=== PATIENT | female | born 1960 | race Caucasian/White ===

== ENCOUNTER 2024-12-22 11:14 | Inpatient (IN) ==
--- NOTE | 2024-12-22 11:25 | Emergency Department Note ---
Impression & Plan Neutropenic fever, Pancytopenia, Epistaxis, Hypomagnesemia, History of endometrial cancer ED Provider Note NAME: CLAUDE HENDERSON AGE: 64 SEX: F : 1960 ARRIVES VIA: Walk-In INFORMANT: Patient, ED PROVIDER(S): Amadou Woodruff MD CHIEF COMPLAINT: Outpatient referral, fever chest x-ray does not show obvious pneumonia MEDICAL DECISION MAKING: Patient presents due to concern for possible neutropenia and fever. IV was established and blood work obtained along with blood cultures and MRSA swab and empiric IV cefepime IV fluids. Patient with a white count of 0.5 and absolute neutrophil count of 280. The patient does have significant thrombocytopenia with a platelet count of 5. Kidney function unremarkable hypomagnesemia noted and associated transaminitis with mild elevation in Pro-Jalil. Bio fire and MRSA swab negative. The patient did have a blood bank ordered and platelets also ordered after discussing with Dr. Alves who recommended transfusion to platelet count greater than 10. I did speak the on-call hospitalist service [facility] and the patient was admitted by Dr. Jackman. Critical Care: I have personally spent 48 minutes of critical care time in direct management of this patient. This includes bedside care, interpretation of diagnostic studies, and testing, discussion with consultants, patient, and family members, and other require inpatient management activities. This 48 minutes is in excess of all separately billable procedures. Discussion w/ other healthcare providers: Dr. Alves [facility] oncology hematology [facility] and Dr. Jackman inpatient medicine service Prior /Outside records reviewed: I reviewed the patient's outpatient blood work from earlier today which showed an absolute neutrophil count of 220. White count was 0.7. Differential diagnosis: Viral syndrome, otitis, pharyngitis, pneumonia, influenza, meningitis, urinary tract infection, sepsis, bacteremia, as well as other pathologies. Diagnostics, as interpreted by me: ECG: Normal sinus rhythm, rate of 91, normal intervals, normal axis no ST elevations T wave version in V2. Cardiac monitoring: An order was placed for continuous cardiac monitoring. The monitor shows a rate of 88 with sinus rhythm. Patient was placed on pulse oximetry Medical decision rules: None Imaging studies: I informally interpreted the patient's chest x-ray shows trace right-sided pleural effusion, port noted no obvious pneumothorax with formal report to follow. HPI: Patient presents due to concern for fever. The patient reportedly was seen in the outpatient setting by oncology to discuss further chemotherapy treatment for this upcoming Wednesday. The patient reportedly did undergo 5 days of chemotherapy which she completed December 08 for endometrial cancer. She does follow with Dr. Alves. Denies any chest pain or shortness of breath but was noted to have a fever of 102 in the clinic. Patient denies any sinus congestion or cough. The patient does have a colostomy. She denies any dysuria or hematuria. The patient reports that she has had some right sided bloody nose. No trauma. Patient does report that she has been very fatigued all over since her chemo but her appetite has improved the last several days. No vomiting or diarrhea. No known sick contacts or any recent travel. PAST MEDICAL HISTORY: Endometrial cancer PAST SURGICAL HISTORY: Colostomy SOCIAL HISTORY: Denies tobacco use. HOME MEDICATIONS: See Below ALLERGIES: See Below VITALS: See Below PHYSICAL EXAMINATION: GENERAL: Fatigable but in NAD, non-toxic. EYE EXAM: Normal conjunctiva. PERRL, no anisocoria and EOM's grossly intact w/o pain. OROPHARYNX: Dry mucus membranes, grossly normal dentition. Nose: Blood noted in the right naris. No bleeding noted from the left naris. NECK: Trachea midline, no stridor. LUNGS: Clear to auscultation. Normal chest wall mechanics. HEART: NSR, no MRG. ABDOMEN: Abdomen soft, non-tender, colostomy noted, no masses, no rebound or guarding. BACK: No CVA TTP. SKIN: No rashes and no bruising. UPPER EXTREMITIES: Upper extremities are grossly normal. LOWER EXTREMITIES: Grossly normal, no edema. NEURO EXAM: Awake and alert, follows commands, no obvious facial asymmetry, normal speech, moves all 4 extremities. 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 Beliefs That Will Affect Care: None Current Living Situation: Alone Other Information That Helps Us Care for You: No Feels Safe at Home: Yes Safety Concerns: Feels Safe At This Time Allergies Allergies Allergy/AdvReac Type Severity Reaction Status Date / Time No Known Allergies Allergy Verified 04/01/24 02:37 Home Meds Home Medications Medication Instructions Recorded Confirmed olanzapine 10 mg tablet 10 mg PO DIRECTED PRN Other 12/22/24 12/22/24 ondansetron HCl 8 mg tablet 8 mg PO DIRECTED PRN n/v 12/22/24 12/22/24 Results & Data (ED) Vital Signs Vital Signs - 24 hr 12/22/24 11:17 12/22/24 11:40 12/22/24 11:40 Temperature 37.5 C Temperature Source Oral Pulse Rate 91 H 97 H Pulse Rate [Finger] 97 H Pulse Rate from SpO2 Sensor Pulse Rhythm Regular Pulse Rhythm [Finger] Regular Pulse Strength Pulse Strength [Finger] Normal Respiratory Rate 14 18 16 Respiratory Effort / Characteristics Non-Labored Respiratory Depth Normal Normal Respiratory Pattern Regular Blood Pressure 118/75 Blood Pressure [Left Arm] 146/86 H Blood Pressure Mean 89 Blood Pressure Mean [Left Arm] 106 Pulse Oximetry 96 97 95 Oxygen Delivery Method Room Air Room Air Room Air Oxygen Flow Rate 0 Sepsis Recent Fever Within 48 Hours Yes Sepsis New/Unexplained Change in Mental Status No Sepsis Action Taken by Nursing No Action Required 12/22/24 12:17 12/22/24 12:18 12/22/24 12:30 Temperature Temperature Source Pulse Rate 98 H 94 H 96 H Pulse Rate [Finger] Pulse Rate from SpO2 Sensor 95 H 96 H Pulse Rhythm Pulse Rhythm [Finger] Pulse Strength Pulse Strength [Finger] Respiratory Rate 25 H 20 Respiratory Effort / Characteristics Respiratory Depth Respiratory Pattern Blood Pressure 146/86 H 147/79 H Blood Pressure [Left Arm] Blood Pressure Mean 106 88 Blood Pressure Mean [Left Arm] Pulse Oximetry 95 97 Oxygen Delivery Method Oxygen Flow Rate Sepsis Recent Fever Within 48 Hours Sepsis New/Unexplained Change in Mental Status Sepsis Action Taken by Nursing 12/22/24 13:00 12/22/24 13:45 12/22/24 13:45 Temperature 37.3 C Temperature Source Oral Pulse Rate 92 H 82 82 Pulse Rate [Finger] Pulse Rate from SpO2 Sensor 92 H 83 Pulse Rhythm Regular Pulse Rhythm [Finger] Pulse Strength Normal Pulse Strength [Finger] Respiratory Rate 20 18 20 Respiratory Effort / Characteristics Respiratory Depth Respiratory Pattern Blood Pressure 131/78 129/72 129/72 Blood Pressure [Left Arm] Blood Pressure Mean 97 91 91 Blood Pressure Mean [Left Arm] Pulse Oximetry 97 95 95 Oxygen Delivery Method Oxygen Flow Rate Sepsis Recent Fever Within 48 Hours Sepsis New/Unexplained Change in Mental Status Sepsis Action Taken by Nursing 12/22/24 14:00 12/22/24 14:00 12/22/24 14:15 Temperature 36.9 C Temperature Source Oral Pulse Rate 81 78 77 Pulse Rate [Finger] Pulse Rate from SpO2 Sensor 77 Pulse Rhythm Pulse Rhythm [Finger] Pulse Strength Pulse Strength [Finger] Respiratory Rate 22 18 20 Respiratory Effort / Characteristics Respiratory Depth Respiratory Pattern Blood Pressure 129/76 129/76 122/77 Blood Pressure [Left Arm] Blood Pressure Mean 93 88 92 Blood Pressure Mean [Left Arm] Pulse Oximetry 96 96 96 Oxygen Delivery Method Oxygen Flow Rate Sepsis Recent Fever Within 48 Hours Sepsis New/Unexplained Change in Mental Status Sepsis Action Taken by Nursing 12/22/24 14:21 Temperature Temperature Source Pulse Rate 77 Pulse Rate [Finger] Pulse Rate from SpO2 Sensor 77 Pulse Rhythm Pulse Rhythm [Finger] Pulse Strength Pulse Strength [Finger] Respiratory Rate 18 Respiratory Effort / Characteristics Respiratory Depth Respiratory Pattern Blood Pressure 122/77 Blood Pressure [Left Arm] Blood Pressure Mean 92 Blood Pressure Mean [Left Arm] Pulse Oximetry 95 Oxygen Delivery Method Oxygen Flow Rate Sepsis Recent Fever Within 48 Hours Sepsis New/Unexplained Change in Mental Status Sepsis Action Taken by Jail Medications Current Medication List: was personally reviewed by me Laboratory Data Attestation: I reviewed the patient's lab results. 12/23/24 06:28 12/22/24 11:50 Lab Results 12/22/24 12/22/24 12/22/24 Range/Units 11:50 11:59 12:15 WBC 0.50 L* (4.8-10.8) K/ul RBC 2.74 L (4.20-5.40) M/uL Hgb 8.6 L (12.0-16.0) g/dl Hct 24.9 L (37.0-47.0) % MCV 90.9 (80.0-100.0) fL MCH 31.4 (25.0-34.0) pg MCHC 34.5 (32.0-36.0) g/dL RDW Std Deviation 41.8 (36.4-46.3) fL RDW Coeff of Paul 12.6 (11.5-14.5) % Plt Count 5 L* (130-400) K/uL MPV 12.8 H (9.4-12.4) fL Immature Gran % (Auto) 2.0 % Neut % (Auto) 30.0 % Lymph % (Auto) 56.0 % [place] % (Auto) 12.0 % Eos % (Auto) 0.0 % Baso % (Auto) 0.0 % Neut # (Auto) 0.15 L* (1.40-6.50) K/uL Lymph # (Auto) 0.28 L (1.20-3.40) K/uL [place] # (Auto) 0.06 L (0.11-0.59) K/uL Eos # (Auto) 0.00 (0.00-0.50) K/uL Baso # (Auto) 0.00 (0.00-0.20) K/uL Immature Gran # (Auto) 0.01 (0.01-0.20) K/uL Platelet Estimate Signific. Decreased L (Normal) Sodium 135 L (136-145) mmol/L Potassium 3.6 (3.5-5.1) mmol/L Chloride 97 L (98-107) mmol/L Carbon Dioxide 28 (21-32) mmol/L Anion Gap 10 (3-11) BUN 31 H (6-23) mg/dl Creatinine 0.95 (0.6-1.2) mg/dl Est Cr Clr Drug Dosing 56.1 ml/min eGFR 67.32 BUN/Creatinine Ratio 32.6 H (10-20) Glucose 130 H (70-99(Fasting)) mg/dl Lactate 1.0 (0.4-2.0) mmol/L Calcium 8.7 (8.6-10.3) mg/dl Magnesium 1.2 L (1.7-2.4) mg/dl Total Bilirubin 0.3 (0.2-1.0) mg/dl Direct Bilirubin 0.1 (0-0.2) mg/dl AST 66 H (13-39) U/L ALT 65 H (7-52) U/L Alkaline Phosphatase 104 (34-104) U/L Troponin I High Sens 8.8 (0-14) pg/ml Total Protein 6.8 (6.0-8.3) gm/dl Albumin 3.2 L (3.4-5.0) gm/dl Procalcitonin 0.80 H (0-0.5) ng/ml Nasal Screen MRSA (PCR) Negative (Negative) Adenovirus (PCR) Not Detected (NotDetected) B. pertussis DNA (PCR) Not Detected (NotDetected) B.parapertussis DNA PCR Not Detected (NotDetected) C. pneumoniae DNA (PCR) Not Detected (NotDetected) Coronavirus OC43 (PCR) Not Detected (NotDetected) Coronavirus HKU1 (PCR) Not Detected (NotDetected) Coronavirus 229E (PCR) Not Detected (NotDetected) SARS-CoV-2 (PCR) Not Detected (NotDetected) Coronavirus NL63 (PCR) Not Detected (NotDetected) Human Metapneumovir PCR Not Detected (NotDetected) Influenza Type A (PCR) Not Detected (NotDetected) Influenza Type B (PCR) Not Detected (NotDetected) M. pneumoniae (PCR) Not Detected (NotDetected) Parainfluenza 1 (PCR) Not Detected (NotDetected) Parainfluenza 2 (PCR) Not Detected (NotDetected) Parainfluenza 3 (PCR) Not Detected (NotDetected) Parainfluenza 4 (PCR) Not Detected (NotDetected) RSV (PCR) Not Detected (NotDetected) Entero/Rhino (PCR) Not Detected (NotDetected) Blood Type O Positive Antibody Screen NEGATIVE Administered Medications Acetaminophen (Acetaminophen 325 Mg Tab) 650 mg PO Q4H PRN PRN Reason: Pain or Fever Stop: 01/21/25 17:35 Last Admin: 12/22/24 20:49 Dose: 650 mg Documented By: CATY Filgrastim (Filgrastim 300 Mcg/Ml Vial) 300 mcg SQ DAILY JEFFERSON Stop: 12/24/24 09:01 Last Admin: 12/22/24 18:30 Dose: 300 mcg Documented By: KBB Cefepime HCl (Maxipime 2000mg) 2,000 mg in 20 mls @ 5 mls/min IV Q12H JEFFERSON; Protocol Stop: 12/24/24 19:59 Last Admin: 12/22/24 20:49 Dose: 5 mls/min Documented By: CATY Lactated Ringer's (Lr) 1,000 mls @ 75 mls/hr IV .[id number] JEFFERSON Stop: 12/25/24 17:35 Last Admin: 12/22/24 18:29 Dose: 75 mls/hr Documented By: LYN Discontinued Medications Acetaminophen (Acetaminophen 500 Mg Tab) 1,000 mg PO NOW STA Stop: 12/22/24 11:41 Last Admin: 12/22/24 12:12 Dose: 1,000 mg Documented By: RONN Sodium Chloride (Nss) 1,000 mls @ 999 mls/hr IV .[id number] JEFFERSON Stop: 12/22/24 12:45 Last Infusion: 12/22/24 13:14 Dose: Infused Documented By: Admin: 12/22/24 12:13 Dose: 999 mls/hr Documented By: RONN Cefepime HCl (Maxipime 2000mg) 2,000 mg in 20 mls @ 5 mls/min IV NOW STA; Protocol Stop: 12/22/24 11:43 Last Admin: 12/22/24 12:11 Dose: 5 mls/min Documented By: RONN Magnesium Sulfate/Dextrose (Magnesium Sulfate / D5w) 1 gm in 100 mls @ 50 mls/hr IV Q2H JEFFERSON Stop: 12/23/24 01:35 Last Infusion: 12/23/24 05:18 Dose: Infused Documented By: Admin: 12/23/24 03:18 Dose: 50 mls/hr Documented By: Infusion: 12/23/24 03:17 Dose: Infused Documented By: Admin: 12/23/24 01:17 Dose: 50 mls/hr Documented By: Infusion: 12/23/24 01:17 Dose: Infused Documented By: Admin: 12/22/24 23:42 Dose: 50 mls/hr Documented By: [id number] Infusion: 12/22/24 23:00 Dose: Infused Documented By: Admin: 12/22/24 18:29 Dose: 50 mls/hr Documented By: LYN Oxymetazoline HCl (Oxymetazoline 0.05% 30 Ml Btl) 1 sprays NA NOW ONE Stop: 12/22/24 11:50 Last Admin: 12/22/24 12:12 Dose: 1 sprays Documented By: RONN Imaging Data Radiologist's Impression: Chest X-Ray 12/22/24 11:40 XR chest 1V portable CLINICAL HISTORY: Sepsis COMPARISON STUDY: 03/31/2024 FINDINGS: Interval right chest port tip is at the cavoatrial junction. Heart size and pulmonary vasculature are normal. No effusion, consolidation, or pneumothorax. IMPRESSION: No acute findings. ACT 112: Negative or not required by law. Electronically signed by: Noah Dong M.D. 12/22/2024 12:19 PM Discharge Plan Visit Data Chief Complaint: Referred by Doctor Stated Complaint: LOW WHITE AND RED BLOOD COUNT ED Provider: Amadou Woodruff Discharge Problem: Neutropenic fever, Pancytopenia, Epistaxis, Hypomagnesemia, History of endometrial cancer Patient Disposition: Admitted As Inpatient Condition: Fair Discharge Instructions Interventions: ED Discharge Assessment Last Done: 12/22/24 17:12
[2024-12-22] MEDS: CEFEPIME 2000MG 2,000 MG/20 ML SYR IV STA (12:11)
[2024-12-22] MEDS: OXYMETAZOLINE 0.05% 30 ML BTL ONE (12:12)
[2024-12-22] MEDS: ACETAMINOPHEN 500 MG TAB PO STA (12:12)
[2024-12-22] MEDS: SODIUM CHLORIDE 0.9% 1,000 ML IV SCH (12:13)
--- NOTE | 2024-12-22 12:20 | XRay Report ---
XR chest 1V portable CLINICAL HISTORY: Sepsis COMPARISON STUDY: 03/31/2024 FINDINGS: Interval right chest port tip is at the cavoatrial junction. Heart size and pulmonary vascu lature are normal. No effusion, consolidation, or pneumothorax. IMPRESSION: No acute findings. ACT 112: Negative or not required by law. Electronically signed by: Noah Dong M.D. 12/22/2024 12:19 PM
[2024-12-22 12:33] LABS: Albumin Level 3.2 gm/dl (3.4-5.0); BUN Creatinine Ratio 32.6 (10-20); Bilirubin Direct 0.1 mg/dl (0-0.2); Bilirubin,Total 0.3 mg/dl (0.2-1.0); Calcium 8.7 mg/dl (8.6-10.3); Creatinine Clr Calc Pharmacy 56.1 ml/min; Magnesium 1.2 mg/dl (1.7-2.4); Potassium 3.6 mmol/L (3.5-5.1); Total Protein 6.8 gm/dl (6.0-8.3)
[2024-12-22 12:38] LABS: Troponin I High Sensitivity 8.8 pg/ml (0-14)
[2024-12-22 12:43] LABS: Hematocrit (blood only) 24.9 % (37.0-47.0); Hemoglobin 8.6 g/dl (12.0-16.0); Mean Corpuscular Hemoglobin 31.4 pg (25.0-34.0); Mean Corpuscular Hgb Conc 34.5 g/dL (32.0-36.0); Mean Corpuscular Volume 90.9 fL (80.0-100.0); Mean Platelet Volume 12.8 fL (9.4-12.4); Platelet Count 5 K/uL (130-400); RDW Coefficient of Variation 12.6 % (11.5-14.5); RDW Standard Deviation 41.8 fL (36.4-46.3); Red Blood Count 2.74 M/uL (4.20-5.40)
[2024-12-22 12:45] LABS: Immature Granulocytes # (auto) 0.01 K/uL (0.01-0.20); Lymphocytes # (auto) 0.28 K/uL (1.20-3.40); Monocytes # (auto) 0.06 K/uL (0.11-0.59); Neutrophils # (auto) 0.15 K/uL (1.40-6.50); Platelet Estimate Signific. Decreased (Normal)
[2024-12-22] MEDS ORDERED: SODIUM CHLORIDE 0.9% 100 ML IV PRN ×2 (13:14→17:36)
[2024-12-22 13:35] LABS: Adenovirus PCR Not Detected (NotDetected); Bordetella parapertussis PCR Not Detected (NotDetected); Bordetella pertussis PCR Not Detected (NotDetected); Chlamydia pneumoniae PCR Not Detected (NotDetected); Coronavirus 229E PCR Not Detected (NotDetected); Coronavirus CoV-2 (COVID19)PCR Not Detected (NotDetected); Coronavirus HKU1 PCR Not Detected (NotDetected); Coronavirus NL63 PCR Not Detected (NotDetected); Coronavirus OC43PCR Not Detected (NotDetected); Human Metapneumovirus PCR Not Detected (NotDetected); Influenza A PCR Not Detected (NotDetected); Influenza B PCR Not Detected (NotDetected); Mycoplasma pneumoniae PCR Not Detected (NotDetected); Parainfluenza Virus 1 PCR Not Detected (NotDetected); Parainfluenza Virus 2 PCR Not Detected (NotDetected); Parainfluenza Virus 3 PCR Not Detected (NotDetected); Parainfluenza Virus 4 PCR Not Detected (NotDetected); Respiratory Syncytial VirusPCR Not Detected (NotDetected); Rhinovirus/Enterovirus PCR Not Detected (NotDetected)
--- NOTE | 2024-12-22 13:52 | Electrocardiogram Report ---
Test Reason : Blood Pressure : */* mmHG Vent. Rate : 91 BPM Atrial Rate : 91 BPM P-R Int : 156 ms QRS Dur : 84 ms QT Int : 322 ms P-R-T Axes : 44 40 48 degrees QTcB Int : 396 ms Normal sinus rhythm Nonspecific T wave abnormality Abnormal ECG When compared with ECG of 31-Mar-2024 22:27, Minimal criteria for Anterior infarct are no longer Present Minimal criteria for Inferior infarct are no longer Present Nonspecific T wave abnormality, improved in Anterior leads Nonspecific T wave abnormality, worse in Lateral leads Confirmed by Robert Egan ([id number]) on 12/22/2024 1:52:02 PM Referred By: Greer Lai Confirmed By: Robert Egan
--- NOTE | 2024-12-22 15:07 | History & Physical Report ---
Date of Service December 22, 2024 Assessment & Plan (1) Pancytopenia: Plan: Patient is a 64 year old female with past medical history significant for endometrial/ovarian cancer, hysterectomy, colostomy, malnutrition, who presents with fever and nose bleed x1 day that started this morning. She went to her routine followup appointment with Dr. Alves for anticipated chemo treatment scheduled for this coming Wednesday, but was found to have . Completed initial cycle of Cisplatin/Etoposide on 12/08. Had URI symptoms last week without fever or cough, self-limited and now resolved. Reports having weakness, fatigue, no appetite since last chemo treatment. Denies chest pain, swelling, breathing difficulty, urinary symptoms, N/V/D, rectal/urinary bleeding, injuries, falls, cognitive changes. Pancytopenia in the setting of febrile illness with unknown etiology: * Empiric Cefepime 2gm Q8H * Blood cultures pending; MRSA/Biofire neg * Clinically dry- IV fluid replacement with LR at 75ml/hr ordered * Trend CBC with AM * Ordered urine culture to be collected # Chemo-induced Neutropenia * Neupogen x 3 days and consider additional treatment pending labs * Neutropenic precautions #Thrombocytopenia s/p chemo treatment Endometrial CA with cisplatin/etopaside: * Given 1 unit platelets in ED; additional 1 unit ordered to follow * Recheck with AM labs #Epistaxis: * Given Afrin in the ED with resolution * Will continue to monitor #Hypomagnesemia: * Mag 1.2 in the ED * Ordered 1 gm replacement x 4 doses * AM labs ordered DVT Ppx: Teds Code status: Full PCP: Dr. Greer Lai Dispo: Admit to Med Surg for further mgmt Patient seen in collaboration with Dr. Jackman. Please see addendum.I spent a total of 70 minutes coordinating, documenting and providing care for this patient excluding time spent in the performance of separately billed services or time spent by another provider/QHP. (2) Neutropenia: (3) Thrombocytopenia: (4) Epistaxis: (5) Hypomagnesemia: (6) Ovarian cancer: (7) Endometrial cancer: History of Present Illness Primary Care Provider: Greer Lai DO Patient is a 64 year old female with past medical history significant for endometrial/ovarian cancer, hysterectomy, colostomy, malnutrition, who presents with fever and nose bleed x1 day that started this morning. She went to her routine followup appointment with Dr. Alves for anticipated chemo treatment scheduled for this coming Wednesday, but was found to have . Completed initial cycle of Cisplatin/Etoposide on 12/08. Had URI symptoms last week without fever or cough, self-limited and now resolved. Reports having weakness, fatigue, no appetite since last chemo treatment. Denies chest pain, swelling, breathing difficulty, urinary symptoms, N/V/D, rectal/urinary bleeding, injuries, falls, cognitive changes. In the emergency room, she had a fever of 37.5 with evidence of pancytopenia WBC 0.5, Neut 0.15, Lymph 0.28, Dare 0.06, platelets low at 5. No evidence of sepsis, although Procal elevated at 0.8. Hemodynamically stable. Cefepime was initiated. 1 unit Platelets given. Chest Xray showed no acute findings. EKG showing NSR, QTc 396. MRSA/Biofire negative. Blood cultures. Clinically dry and given IV fluids. Per external chart review, the patient was found to have a cystic mass measuring 23 x 15 x 28 cm in the abdomen, arising from the pelvis and extending to the abdomen with bilateral hydronephrosis and hydroureter on 03/2024 On 04/2024 she underwent exploratory laparotomy, total abdominal hysterectomy with bilateral salpingo-oophorectomy, sigmoid-rectum resection with descending colon end-ostomy (per general surgery), cystourethroscopy. 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 There was involvement of the fallopian tube as well. She completed 6 cycles of Taxol plus carboplatin in Avastin combination then placed on maintenance Avastin for a few weeks. She then went to [facility] for a second opinion and was given the recommendation to begin Cisplatin and Etoposide- her first treatment ended on 12/08. Discussed patient condition with Susi Soto Heme/Onc, via [place] text regarding Neupogen management in the setting of pancytopenia. Labs reviewed and per Kaiden Soto advised for up to 5 days treatment pending labs. History obtained from the patient, her sister who was at the bedside and via external chart review. Allergies Allergy/AdvReac Type Severity Reaction Status Date / Time No Known Allergies Allergy Verified 09/28/24 02:37 Home Medications Medication Instructions Recorded Confirmed Type olanzapine 10 mg tablet 10 mg PO DIRECTED PRN Other 12/22/24 12/22/24 History ondansetron HCl 8 mg tablet 8 mg PO DIRECTED PRN n/v 12/22/24 12/22/24 History Past Med/Surg History Problem List Epistaxis Pancytopenia Thrombocytopenia Hypomagnesemia Neutropenia Colostomy status Medical History Breast nodule Malnutrition Endometrial cancer Ovarian cancer Social History Smoking Status: Never smoker Second Hand Exposure: No; Do You Dip or Chew Tobacco: No; Tobacco Cessation Education Requested by Patient: No Hx Alcohol Use: No Hx Substance Use: No Preferred Language: Romanian 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 WEIGHT/BMI reviewed. GEN: Appears weal, well-developed, NAD. PSYCH: AOx4. Normal memory, mood, and affect. HEENT -Head: NC/AT; -Eyes: PERRL, EOMI. No discharge or redn ess; -Ears: External ears are normal. -Nose: Right nare clot, no active bleedi ng. Left nare patent without drainage. -Mouth and throat: MMM. Normal gums, muc jeffery, palate,. Good dentition. NECK: Supple, with no masses. CV: S1, S2 without murmurs, rubs, extra sounds. No swelling. Pulses strong. LUNGS: CTAB, no w/r/c. ABD: Soft, NT/ND, colostomy intact with +air. : N/A SKIN: Warm, diaphoretic. Petechiae to left chest. MSK: No deformities, Normal gait. EXT: No clubbing, cyanosis, or edema. NEURO: Ambulating with no limitations. Normal muscle strength and tone. No focal deficits. Results & Data Results & Data Vital Signs (Past 12 Hours) Vital Signs Temp Pulse Pulse Resp BP BP Pulse Ox 12/22/24 14:15 77 20 122/77 96 12/22/24 14:00 36.9 C 81 22 129/76 96 12/22/24 13:45 37.3 C 82 18 129/72 95 12/22/24 12:18 94 H 25 H 146/86 H 95 12/22/24 12:17 98 H 12/22/24 11:40 97 H 16 95 12/22/24 11:40 97 H 18 146/86 H 97 12/22/24 11:17 37.5 C 91 H 14 118/75 96 O2 Del Method O2 Flow Rate 12/22/24 14:15 12/22/24 14:00 12/22/24 13:45 12/22/24 12:18 12/22/24 12:17 12/22/24 11:40 Room Air 0 12/22/24 11:40 Room Air 12/22/24 11:17 Room Air Laboratory Results Short CBC 12/22/24 Range/Units 11:50 WBC 0.50 L* (4.8-10.8) K/ul Hgb 8.6 L (12.0-16.0) g/dl Hct 24.9 L (37.0-47.0) % Plt Count 5 L* (130-400) K/uL BMP 12/22/24 11:50 Sodium 135 L Potassium 3.6 Chloride 97 L Carbon Dioxide 28 BUN 31 H Creatinine 0.95 Glucose 130 H Calcium 8.7 Liver Function 12/22/24 Range/Units 11:50 Total Bilirubin 0.3 (0.2-1.0) mg/dl Direct Bilirubin 0.1 (0-0.2) mg/dl AST 66 H (13-39) U/L ALT 65 H (7-52) U/L Alkaline Phosphatase 104 (34-104) U/L Albumin 3.2 L (3.4-5.0) gm/dl Diagnostic Findings Chest X-Ray 12/22/24 11:40 XR chest 1V portable CLINICAL HISTORY: Sepsis COMPARISON STUDY: 03/31/2024 FINDINGS: Interval right chest port tip is at the cavoatrial junction. Heart size and pulmonary vasculature are normal. No effusion, consolidation, or pneumothorax. IMPRESSION: No acute findings. ACT 112: Negative or not required by law. Electronically signed by: Noah Dong M.D. 12/22/2024 12:19 PM Code Status & VTE Plan VTE Prophylaxis Plan VTE Prophylaxis will be ordered: Yes Supervising Physician Co-Signing Physician Notes Patient seen and examined independently. Discussed with above provider. Patient is a 64-year-old female with medical history of ovarian cancer status post GEO with BSO, she had undergone cytoreductive surgery on 04/07/2024, currently on cisplatin and etoposide; last cycle 12/04 to 12/07. She had gone to hematology clinic and was found to have pancytopenia and was referred to the hospital. Continue cefepime till counts recover Discussed with hematology; plan to start Neupogen daily until neutrophil counts recover. Patient also given 1 unit of platelet transfusion so far; plan to transfuse another unit. Replete magnesium. Monitor CBC daily. I have reviewed the advanced practitioner's documentation, and I agree with, and take responsibility for the plan of care I spent a total of 30 minutes coordinating, documenting, and providing care for this patient excluding time spent in the performance of separately billed services. All of the aforementioned completed while collaborating with the assigned advanced practitioner for a full treatment plan
[2024-12-22] MEDS ORDERED: ondansetron HCL 8 MG in DEXTROSE 5% 50 ML IV PRN (17:36)
[2024-12-22] MEDS: MAGNESIUM SULFATE / D5W 1 GM/100 ML BAG IV SCH (18:29)
[2024-12-22] MEDS: LACTATED RINGER'S 1,000 ML IV SCH (18:29)
[2024-12-22] MEDS: FILGRASTIM 300 MCG/ML VIAL SQ SCH (18:30)
[2024-12-22] MEDS: ACETAMINOPHEN 325 MG TAB PO PRN (20:49)
[2024-12-22] MEDS: CEFEPIME 2000MG 2,000 MG/20 ML SYR IV SCH (20:49)
[2024-12-23 07:26] LABS: Hematocrit (blood only) 21.4 % (37.0-47.0); Hemoglobin 7.5 g/dl (12.0-16.0); Mean Corpuscular Hemoglobin 31.8 pg (25.0-34.0); Mean Corpuscular Volume 90.7 fL (80.0-100.0); Mean Platelet Volume 11.1 fL (9.4-12.4); Platelet Count 11 K/uL (130-400); RDW Coefficient of Variation 12.6 % (11.5-14.5); RDW Standard Deviation 41.8 fL (36.4-46.3); Red Blood Count 2.36 M/uL (4.20-5.40); White Blood Count 0.79 K/ul (4.8-10.8)
[2024-12-23 07:41] LABS: BUN Creatinine Ratio 27.8 (10-20); Calcium 8.2 mg/dl (8.6-10.3); Creatinine Clr Calc Pharmacy 74.8 ml/min; Magnesium 2.3 mg/dl (1.7-2.4); Phosphorus 2.8 mg/dl (2.5-4.9)
[2024-12-23 08:37] LABS: ANC (manual) 0.33 K/uL (1.4-6.5); Blast # (manual) 0.01 K/uL (0-0); Blast Cells % (manual) 1 %; Dohle Bodies 2+; Lymphocytes % (manual) 50 %; Monocytes # (manual) 0.06 K/uL (0.11-0.59); Monocytes % (manual) 7 %; Neutrophils # (manual) 0.33 K/uL (1.40-6.50); Neutrophils % (manual) 42 %; Toxic Granulation 2+
[2024-12-23] MEDS: POTASSIUM CHLORIDE / WTR 10 MEQ/100 ML PLCT IV SCH (09:13)
[2024-12-23] MEDS: POTASSIUM CHLORIDE CRTAB 20 MEQ TABCR PO STA (09:13)
[2024-12-23 09:52] LABS: Appearance Urine Clear (Clear); Bacteria Urine Automated None Seen (None Seen); Bilirubin Urine Negative (Negative); Blood Urine 3+ (Negative); Color Urine Yellow; Glucose Urine UA Negative (Negative); Ketones Urine Negative (Negative); Leukocyte Esterase Urine Negative (Negative); Nitrite Urine Negative (Negative); Protein Urine 1+ (Negative); Specific Gravity Urine 1.019 (1.000-1.030); Urobilinogen Urine Negative (Negative); pH Urine 5.5 (4.5-7.5)
--- NOTE | 2024-12-23 13:00 | Hospitalist Progress Note ---
Date of Service December 23, 2024 Assessment & Plan (1) Pancytopenia: Plan: Patient is a 64 year old female with past medical history significant for endometrial/ovarian cancer, hysterectomy, colostomy, malnutrition, who presents with fever and nose bleed x1 day that started this morning. She went to her routine followup appointment with Dr. Alves for anticipated chemo treatment scheduled for this coming Wednesday, but was found to have . Completed initial cycle of Cisplatin/Etoposide on 12/08. Had URI symptoms last week without fever or cough, self-limited and now resolved. Reports having weakness, fatigue, no appetite since last chemo treatment. Denies chest pain, swelling, breathing difficulty, urinary symptoms, N/V/D, rectal/urinary bleeding, injuries, falls, cognitive changes. Pancytopenia Febrile Neutropenia * Empiric Cefepime 2gm Q8H * no clear source at this time * Blood cultures pending; MRSA/Biofire neg * increase LR to 125cc/hr given weight and dry on exam * heme/onc consulted given blast cell on CBC, appreciate recs * Trend CBC with AM * Neupogen x 3 days and consider additional treatment pending labs * Neutropenic precautions #Thrombocytopenia s/p chemo treatment Endometrial CA with cisplatin/etopaside: * Recheck with AM labs #Epistaxis: * Given Afrin in the ED with resolution * Will continue to monitor #Hypomagnesemia: * resolved I spent a total of 55 minutes in direct patient care, including [id number] time with the patient and/or family, reviewing medical records, ordering and reviewing diagnostic tests, and coordinating care with other healthcare providers. This time includes: history taking, physical examination, medical decision making, counseling, ECG interpretation, imaging interpretation, lab interpretation, orders, and education, excluding time spent in the performance of separately billed services. (2) Neutropenia: (3) Thrombocytopenia: (4) Epistaxis: (5) Hypomagnesemia: (6) Ovarian cancer: (7) Endometrial cancer: Admission and Anticipated Discharge Date Admission Date: December 22, 2024 Subjective Patient seen and examined at bedside. Patient not doing well today. Feels very fatigued and weak. Otherwise, no other localizing symptoms such as SOB, dysuria, chest pain, abdominal pain. Review of Systems Review of Systems: CONSTITUTIONAL: fatigue, weakness EYES: Patient denies any visual symptoms. EARS, NOSE, AND THROAT: No difficulties with hearing. No symptoms of rhinitis or sore throat. CARDIOVASCULAR: Patient denies chest pains, palpitations, orthopnea and paroxysmal nocturnal dyspnea. RESPIRATORY: No dyspnea on exertion, no wheezing or cough. GI: No nausea, vomiting, diarrhea, constipation, abdominal pain, hematochezia or melena. : No urinary hesitancy or dribbling. No nocturia or urinary frequency. No abnormal urethral discharge. MUSCULOSKELETAL: No myalgias or arthralgias. NEUROLOGIC: No chronic headaches, no seizures. Patient denies numbness, tingling or weakness. PSYCHIATRIC: Patient denies problems with mood disturbance. No problems with anxiety. ENDOCRINE: No excessive urination or excessive thirst. DERMATOLOGIC: Patient denies any rashes or skin changes. Physical Exam Physical Exam: Gen: A&O 3 NAD, sarcopenia noted HEENT: NCAT, EOMI, not icteric. External ears normal. No rhinorrhea. Moist mucous membranes. Neck: Supple, full range of motion, no observable masses, No meningeal sign. Lungs: No Respiratory distress. CV: RRR, no edema. Abdomen: Soft, nondistended, No rebound tenderness. MSK: No joint swelling, no redness. Skin: No rashes, petechiae, lesions. Normal color per patient. Neuro: Normal Gait, Grossly intact. Psych: Appropriate for situation. Results & Data Results & Data Vital Signs (Past 12 Hours) Vital Signs Temp Pulse Resp BP Pulse Ox O2 Del Method 12/23/24 07:18 38.3 C H 98 H 16 129/73 98 Room Air 12/23/24 03:18 37.6 C H 92 H 16 144/79 H 95 Room Air 12/23/24 01:18 36.9 C 88 18 128/78 96 Room Air Laboratory Results -personally reviewed, pancytopenia noted, neutropenia noted, blast noted on peripheral smear, K of 3 was replenished, UA not suggestive of UTI Diagnostic Findings -personally reviewed, chest xray unremarkable Medications Administered Acetaminophen (Acetaminophen 325 Mg Tab) 650 mg PO Q4H PRN PRN Reason: Pain or Fever Stop: 01/21/25 17:35 Last Admin: 12/23/24 08:05 Dose: 650 mg Documented By: Admin: 12/22/24 20:49 Dose: 650 mg Documented By: CATY Filgrastim (Filgrastim 300 Mcg/Ml Vial) 300 mcg SQ DAILY JEFFERSON Stop: 12/24/24 09:01 Last Admin: 12/23/24 08:05 Dose: 300 mcg Documented By: Admin: 12/22/24 18:30 Dose: 300 mcg Documented By: LYN Cefepime HCl (Maxipime 2000mg) 2,000 mg in 20 mls @ 5 mls/min IV Q12H JEFFERSON; Protocol Stop: 12/24/24 19:59 Last Admin: 12/23/24 08:05 Dose: 5 mls/min Documented By: Admin: 12/22/24 20:49 Dose: 5 mls/min Documented By: CATY Lactated Ringer's (Lr) 1,000 mls @ 75 mls/hr IV .[id number] [facility] Stop: 12/25/24 17:35 Last Admin: 12/23/24 09:13 Dose: 75 mls/hr Documented By: Infusion: 12/23/24 07:49 Dose: Infused Documented By: Admin: 12/22/24 18:29 Dose: 75 mls/hr Documented By: LYN
[2024-12-23] MEDS: CEFEPIME 2000MG 2,000 MG/20 ML SYR IV SCH (16:31)
[2024-12-24 06:51] LABS: BUN Creatinine Ratio 19.3 (10-20); Calcium 8.1 mg/dl (8.6-10.3); Creatinine Clr Calc Pharmacy 64.9 ml/min; Potassium 3.7 mmol/L (3.5-5.1)
[2024-12-24 07:07] LABS: Hematocrit (blood only) 23.8 % (37.0-47.0); Hemoglobin 7.8 g/dl (12.0-16.0); Mean Corpuscular Hemoglobin 30.8 pg (25.0-34.0); Mean Corpuscular Hgb Conc 32.8 g/dL (32.0-36.0); Mean Corpuscular Volume 94.1 fL (80.0-100.0); Mean Platelet Volume 12.7 fL (9.4-12.4); Platelet Count 10 K/uL (130-400); RDW Coefficient of Variation 12.5 % (11.5-14.5); RDW Standard Deviation 42.6 fL (36.4-46.3); Red Blood Count 2.53 M/uL (4.20-5.40); White Blood Count 1.37 K/ul (4.8-10.8)
[2024-12-24 07:45] LABS: Dohle Bodies 1+; Polychromasia 1+; Toxic Granulation 1+
[2024-12-24 07:46] LABS: Basophils # (auto) 0.01 K/uL (0.00-0.20); Basophils % (auto) 0.7 %; Lymphocytes # (auto) 0.49 K/uL (1.20-3.40); Lymphocytes % (auto) 35.8 %; Monocytes # (auto) 0.11 K/uL (0.11-0.59); Neutrophils # (auto) 0.76 K/uL (1.40-6.50); Neutrophils % (auto) 55.5 %
--- NOTE | 2024-12-24 10:08 | Hospitalist Progress Note ---
Date of Service December 24, 2024 Assessment & Plan (1) Pancytopenia: Plan: Patient is a 64 year old female with past medical history significant for endometrial/ovarian cancer, hysterectomy, colostomy, malnutrition, who presents with fever and nose bleed x1 day that started this morning. She went to her routine followup appointment with Dr. Alves for anticipated chemo treatment scheduled for this coming Wednesday, but was found to have . Completed initial cycle of Cisplatin/Etoposide on 12/08. Had URI symptoms last week without fever or cough, self-limited and now resolved. Reports having weakness, fatigue, no appetite since last chemo treatment. Denies chest pain, swelling, breathing difficulty, urinary symptoms, N/V/D, rectal/urinary bleeding, injuries, falls, cognitive changes. Pancytopenia Febrile Neutropenia * Empiric Cefepime 2gm Q8H * no clear source at this time * Blood cultures pending; MRSA/Biofire neg * continue LR to 125cc/hr given weight and dry on exam * heme/onc consulted given blast cell on CBC, appreciate recs * Trend CBC with AM * Neupogen x 3 days and consider additional treatment pending labs * Neutropenic precautions #Thrombocytopenia s/p chemo treatment Endometrial CA with cisplatin/etopaside: * continue to trend #Epistaxis: * Given Afrin in the ED with resolution * Will continue to monitor #Hypomagnesemia: * resolved I spent a total of 45 minutes in direct patient care, including [id number] time with the patient and/or family, reviewing medical records, ordering and reviewing diagnostic tests, and coordinating care with other healthcare providers. This time includes: history taking, physical examination, medical decision making, counseling, ECG interpretation, imaging interpretation, lab interpretation, orders, and education, excluding time spent in the performance of separately billed services. (2) Neutropenia: (3) Thrombocytopenia: (4) Epistaxis: (5) Hypomagnesemia: (6) Ovarian cancer: (7) Endometrial cancer: Admission and Anticipated Discharge Date Admission Date: December 22, 2024 Subjective Patient seen and examined at bedside. Patient unhappy this morning, states she has a fever and doesn't want to be bothered at this time. Review of Systems Review of Systems: CONSTITUTIONAL: fatigue, weakness EYES: Patient denies any visual symptoms. EARS, NOSE, AND THROAT: No difficulties with hearing. No symptoms of rhinitis or sore throat. CARDIOVASCULAR: Patient denies chest pains, palpitations, orthopnea and paroxysmal nocturnal dyspnea. RESPIRATORY: No dyspnea on exertion, no wheezing or cough. GI: No nausea, vomiting, diarrhea, constipation, abdominal pain, hematochezia or melena. : No urinary hesitancy or dribbling. No nocturia or urinary frequency. No abnormal urethral discharge. MUSCULOSKELETAL: No myalgias or arthralgias. NEUROLOGIC: No chronic headaches, no seizures. Patient denies numbness, tingling or weakness. PSYCHIATRIC: Patient denies problems with mood disturbance. No problems with anxiety. ENDOCRINE: No excessive urination or excessive thirst. DERMATOLOGIC: Patient denies any rashes or skin changes. Physical Exam Physical Exam: Gen: A&O 3 NAD, sarcopenia noted HEENT: NCAT, EOMI, not icteric. External ears normal. No rhinorrhea. Moist mucous membranes. Neck: Supple, full range of motion, no observable masses, No meningeal sign. Lungs: No Respiratory distress. CV: RRR, no edema. Abdomen: Soft, nondistended, No rebound tenderness. MSK: No joint swelling, no redness. Skin: No rashes, petechiae, lesions. Normal color per patient. Neuro: Normal Gait, Grossly intact. Psych: Appropriate for situation. Results & Data Results & Data Vital Signs (Past 12 Hours) Vital Signs Temp Pulse Pulse Resp BP Pulse Ox O2 Del Method 12/24/24 08:11 39.5 C H 99 H 18 159/72 H 94 Room Air 12/24/24 07:21 88 12/24/24 04:59 90 12/24/24 04:25 36.9 C 81 18 131/74 95 Room Air 12/24/24 00:16 37.8 C H 93 H 18 147/73 H 95 Room Air Laboratory Results -personally reviewed, improving leukocytosis, Hgb and platlets stable Medications Administered Acetaminophen (Acetaminophen 325 Mg Tab) 650 mg PO Q4H PRN PRN Reason: Pain or Fever Stop: 01/21/25 17:35 Last Admin: 12/24/24 08:20 Dose: 650 mg Documented By: Admin: 12/23/24 22:58 Dose: 650 mg Documented By: Admin: 12/23/24 16:40 Dose: 650 mg Documented By: Admin: 12/23/24 08:05 Dose: 650 mg Documented By: Admin: 12/22/24 20:49 Dose: 650 mg Documented By: CATY Lactated Ringer's (Lr) 1,000 mls @ 125 mls/hr IV .Q8H [facility] Stop: 12/25/24 17:35 Last Admin: 12/24/24 03:06 Dose: 125 mls/hr Documented By: Infusion: 12/24/24 03:05 Dose: Infused Documented By: Admin: 12/23/24 18:34 Dose: 125 mls/hr Documented By: Infusion: 12/23/24 18:34 Dose: Infused Documented By: Infusion: 12/23/24 13:07 Dose: 125 mls/hr Documented By: Admin: 12/23/24 09:13 Dose: 75 mls/hr Documented By: Infusion: 12/23/24 07:49 Dose: Infused Documented By: Admin: 12/22/24 18:29 Dose: 75 mls/hr Documented By: LYN Cefepime HCl (Maxipime 2000mg) 2,000 mg in 20 mls @ 5 mls/min IV Q8H JEFFERSON; Protocol Stop: 12/24/24 19:59 Last Admin: 12/24/24 08:21 Dose: 5 mls/min Documented By: Admin: 12/24/24 00:41 Dose: 5 mls/min Documented By: Admin: 12/23/24 16:31 Dose: 5 mls/min Documented By: RYAN
[2024-12-24] MEDS: ACETAMINOPHEN 1,000 MG/100 ML VIAL IV STA (18:25)
--- NOTE | 2024-12-24 18:55 | Communication Note ---
Date of Service: December 24, 2024 Patient seen at bedside. She is lying comfortably on the bed; denies pain, cough, sore throat, chest pain, change in bladder and bowel habit. She has been febrile despite administration of oral Tylenol. Family visiting from out of town at bedside. Plan is to give 1 dose of IV 1 g Tylenol for fever, obtain right upper extremity Doppler to rule out DVT, CT chest without contrast and CT chest abdomen/pelvis to evaluate for infectious source.
[2024-12-24] MEDS: OPTIRAY 320 100ml IV ONE (21:02)
--- NOTE | 2024-12-24 22:31 | Ultrasound Report ---
Exam(s): US VENOUS RIGHT UPPER EXTREMITY EXAM: US Duplex Right Upper Extremity Veins CLINICAL HISTORY: Reason for exam: rule out DVT. TECHNIQUE: Real-time duplex ultrasound scan of the right upper extremity veins integrating B-mode two-dimensional vascular structure, Doppler spectral analysis, color flow Doppler imaging and compression. COMPARISON: No relevant prior studies available. FINDINGS: Deep veins: Unremarkable. No DVT in the internal jugular, subclavian, axillary, or brachial veins. The veins demonstrate normal color flow, are normally compressible, with normal phasic flow and/or augmentation response. Superficial veins: Unremarkable. No thrombus in the visualized basilic and cephalic veins. Soft tissues: No acute findings. IMPRESSION: Negative right upper extremity duplex venous ultrasound. No evidence of venous thrombosis. Electronically signed by: Sreekanth Owens MD 12/24/24 22:30 PM
--- NOTE | 2024-12-24 22:33 | CT Scan Report ---
Exam(s): CT CHEST Without Contrast EXAM: CT Chest Without Intravenous Contrast CLINICAL HISTORY: Reason for exam: fever of unknown origin. TECHNIQUE: Axial computed tomography images of the chest without intravenous contrast. CTDI is 20 mGy and DLP is 1105 mGy-cm. Automated exposure control was utilized for the study. A dose lowering technique was utilized adhering to the principles of ALARA. COMPARISON: Chest x-ray from 12/22/2024 FINDINGS: Lungs: See below. Pleural space: Trace right pleural effusion measuring less than 1 cm with trace amount of subsegmental atelectasis in both lung bases. The lungs are otherwise clear. No pneumothorax. Heart: The heart is mildly enlarged. This is trace pericardial effusion. No significant coronary artery calcifications. Bones/joints: Mild degenerative changes throughout the spine. No acute fracture or destructive bone lesion is seen. Soft tissues: Unremarkable. Vasculature: Unremarkable. No thoracic aortic aneurysm. Lymph nodes: Unremarkable. No enlarged lymph nodes. Tubes, lines and devices: There is a Port-A-Cath on the right with the catheter tip at the cavoatrial junction. IMPRESSION: 1. The heart is mildly enlarged. This is trace pericardial effusion. 2. There is a Port-A-Cath on the right with the catheter tip at the cavoatrial junction. 3. Trace right pleural effusion measuring less than 1 cm with trace amount of subsegmental atelectasis in both lung bases. The lungs are otherwise clear. Electronically signed by: Sreekanth Owens MD 12/24/24 22:32 PM
--- NOTE | 2024-12-24 22:36 | CT Scan Report ---
Exam(s): CT ABDOMEN + PELVIS With Contrast IV Amt: 92ml EXAM: CT Abdomen and Pelvis With Intravenous Contrast CLINICAL HISTORY: Reason for exam: fever of unknown cause. TECHNIQUE: Axial computed tomography images of the abdomen and pelvis with intravenous contrast. CTDI is 20 mGy and DLP is 1105 mGy-cm. Automated exposure control was utilized for the study. A dose lowering technique was utilized adhering to the principles of ALARA. CONTRAST: Patient received 92ml of IV contrast COMPARISON: 03/31/2024 FINDINGS: Lung bases: Unremarkable. No mass. No consolidation. ABDOMEN: Liver: Unremarkable. No mass. Gallbladder and bile ducts: There is a 1.5 cm gallstone within a nondilated gallbladder. No definite surrounding inflammation, biliary duct dilation, or choledocholithiasis is seen. Pancreas: Unremarkable. No mass. No ductal dilation. Spleen: Unremarkable. No splenomegaly. Adrenals: Unremarkable. No mass. Kidneys and ureters: Unremarkable. No solid mass. No hydronephrosis. Stomach and bowel: Bowel loops are nondilated. There is a trace amount of fluid in the right pericolic gutter. There is a left lower quadrant colostomy. No acute inflammatory changes are seen involving the bowel. No mucosal thickening. PELVIS: Appendix: No findings to suggest acute appendicitis. Bladder: Unremarkable. No mass. Reproductive: The uterus is absent. ABDOMEN and PELVIS: Intraperitoneal space: There is a trace amount of ascites in the abdomen as well as marbling of the omental fat and scattered mesenteric nodules consistent with peritoneal carcinomatosis. No free air. Bones/joints: Mild degenerative changes in the spine. No acute fracture or destructive bone lesion is seen. No dislocation. Soft tissues: Unremarkable. Vasculature: The abdominal aorta is mildly calcified but nondilated. There is no aneurysm or dissection. Lymph nodes: Unremarkable. No enlarged lymph nodes. IMPRESSION: 1. There is a trace amount of ascites in the abdomen as well as marbling of the omental fat and scattered mesenteric nodules consistent with peritoneal carcinomatosis. 2. There is a 1.5 cm gallstone within a nondilated gallbladder. No definite surrounding inflammation, biliary duct dilation, or choledocholithiasis is seen. 3. Bowel loops are nondilated. There is a trace amount of fluid in the right pericolic gutter. There is a left lower quadrant colostomy. No acute inflammatory changes are seen involving the bowel. Electronically signed by: Sreekanth Owens MD 12/24/24 22:35 PM
[2024-12-25 06:28] LABS: Hematocrit (blood only) 21.2 % (37.0-47.0); Hemoglobin 7.3 g/dl (12.0-16.0); Mean Corpuscular Hemoglobin 31.5 pg (25.0-34.0); Mean Corpuscular Hgb Conc 34.4 g/dL (32.0-36.0); Mean Corpuscular Volume 91.4 fL (80.0-100.0); Mean Platelet Volume 10.5 fL (9.4-12.4); Platelet Count 17 K/uL (130-400); RDW Coefficient of Variation 12.9 % (11.5-14.5); RDW Standard Deviation 42.9 fL (36.4-46.3); Red Blood Count 2.32 M/uL (4.20-5.40); White Blood Count 1.72 K/ul (4.8-10.8)
[2024-12-25 06:50] LABS: BUN Creatinine Ratio 18.6 (10-20); Calcium 7.9 mg/dl (8.6-10.3); Potassium 3.1 mmol/L (3.5-5.1)
[2024-12-25] MEDS: MAGNESIUM SULFATE / D5W 1 GM/100 ML BAG IV SCH (07:51)
[2024-12-25] MEDS: POTASSIUM CHLORIDE CRTAB 20 MEQ TABCR PO STA ×2 (07:51→20:38)
[2024-12-25 08:02] LABS: Basophils # (auto) 0.01 K/uL (0.00-0.20); Basophils % (auto) 0.6 %; Dohle Bodies 2+; Immature Granulocytes # (auto) 0.09 K/uL (0.01-0.20); Immature Granulocytes % (auto) 5.2 %; Lymphocytes # (auto) 0.39 K/uL (1.20-3.40); Lymphocytes % (auto) 22.7 %; Monocytes # (auto) 0.14 K/uL (0.11-0.59); Monocytes % (auto) 8.1 %; Neutrophils # (auto) 1.09 K/uL (1.40-6.50); Neutrophils % (auto) 63.4 %; Toxic Granulation 2+; Toxic Vacuolation 1+
--- NOTE | 2024-12-25 12:47 | Hospitalist Progress Note ---
Date of Service December 25, 2024 Assessment & Plan (1) Pancytopenia: Plan: Patient is a 64 year old female with past medical history significant for endometrial/ovarian cancer, hysterectomy, colostomy, malnutrition, who presents with fever and nose bleed x1 day that started this morning. She went to her routine followup appointment with Dr. Alves for anticipated chemo treatment scheduled for this coming Wednesday, but was found to have . Completed initial cycle of Cisplatin/Etoposide on 12/08. Had URI symptoms last week without fever or cough, self-limited and now resolved. Reports having weakness, fatigue, no appetite since last chemo treatment. Denies chest pain, swelling, breathing difficulty, urinary symptoms, N/V/D, rectal/urinary bleeding, injuries, falls, cognitive changes. #Pancytopenia #Febrile Neutropenia, improving * Empiric Cefepime 2gm Q8H * imaging unremarkable for infectious process * no clear source at this time * Blood cultures negative x72 hours * continue LR to 125cc/hr * heme/onc and ID consulted given blast cell on CBC and ongoing fevers, appreciate recs * Neupogen x 3 days complete #Hypomagnesemia #Hypokalemia * replenished * likely in setting of chemotherapy #Thrombocytopenia s/p chemo treatment Endometrial CA with cisplatin/etoposide: * continue to trend #Epistaxis: * Given Afrin in the ED with resolution * Will continue to monitor #Hypomagnesemia: * resolved I spent a total of 50 minutes in direct patient care, including [id number] time with the patient and/or family, reviewing medical records, ordering and reviewing diagnostic tests, and coordinating care with other healthcare providers. This time includes: history taking, physical examination, medical decision making, counseling, ECG interpretation, imaging interpretation, lab interpretation, orders, and education, excluding time spent in the performance of separately billed services. (2) Neutropenia: (3) Thrombocytopenia: (4) Epistaxis: (5) Hypomagnesemia: (6) Ovarian cancer: (7) Endometrial cancer: Admission and Anticipated Discharge Date Admission Date: December 22, 2024 Subjective Patient seen and examined at bedside. Patient doing better this morning, feeling better than yesterday. Discussed case over phone with family who were appreciative of the update. Review of Systems Review of Systems: CONSTITUTIONAL: fatigue, weakness, improving EYES: Patient denies any visual symptoms. EARS, NOSE, AND THROAT: No difficulties with hearing. No symptoms of rhinitis or sore throat. CARDIOVASCULAR: Patient denies chest pains, palpitations, orthopnea and paroxysmal nocturnal dyspnea. RESPIRATORY: No dyspnea on exertion, no wheezing or cough. GI: No nausea, vomiting, diarrhea, constipation, abdominal pain, hematochezia or melena. : No urinary hesitancy or dribbling. No nocturia or urinary frequency. No abnormal urethral discharge. MUSCULOSKELETAL: No myalgias or arthralgias. NEUROLOGIC: No chronic headaches, no seizures. Patient denies numbness, tingling or weakness. PSYCHIATRIC: Patient denies problems with mood disturbance. No problems with anxiety. ENDOCRINE: No excessive urination or excessive thirst. DERMATOLOGIC: Patient denies any rashes or skin changes. Physical Exam Physical Exam: Gen: A&O 3 NAD, sarcopenia noted HEENT: NCAT, EOMI, not icteric. External ears normal. No rhinorrhea. Moist mucous membranes. Neck: Supple, full range of motion, no observable masses, No meningeal sign. Lungs: No Respiratory distress. CV: RRR, no edema. Abdomen: Soft, nondistended, No rebound tenderness. MSK: No joint swelling, no redness. Skin: No rashes, petechiae, lesions. Normal color per patient. Neuro: Normal Gait, Grossly intact. Psych: Appropriate for situation. Results & Data Results & Data Vital Signs (Past 12 Hours) Vital Signs Temp Pulse Pulse Resp BP Pulse Ox O2 Del Method 12/25/24 11:54 36.6 C 84 17 133/70 94 Room Air 12/25/24 08:44 36.8 C 84 17 131/73 95 Room Air 12/25/24 07:39 82 12/25/24 04:10 37.4 C 12/25/24 03:58 39.5 C H 102 H 18 161/76 H 94 Room Air Laboratory Results -personally reviewed, improved platelets and leukopenia suggesting positive Neupogen response and past chemo alessandra, K of 3.1 and Mg 1 and replenished Medications Administered Acetaminophen (Acetaminophen 325 Mg Tab) 650 mg PO Q4H PRN PRN Reason: Pain or Fever Stop: 01/21/25 17:35 Last Admin: 12/25/24 03:30 Dose: 650 mg Documented By: Admin: 12/24/24 14:53 Dose: 650 mg Documented By: Admin: 12/24/24 08:20 Dose: 650 mg Documented By: Admin: 12/23/24 22:58 Dose: 650 mg Documented By: Admin: 12/23/24 16:40 Dose: 650 mg Documented By: Admin: 12/23/24 08:05 Dose: 650 mg Documented By: Admin: 12/22/24 20:49 Dose: 650 mg Documented By: CATY Lactated Ringer's (Lr) 1,000 mls @ 125 mls/hr IV .Q8H JEFFERSON Stop: 12/25/24 17:35 Last Admin: 12/25/24 05:15 Dose: 125 mls/hr Documented By: Infusion: 12/25/24 05:14 Dose: Infused Documented By: Admin: 12/24/24 21:14 Dose: 125 mls/hr Documented By: Infusion: 12/24/24 21:14 Dose: Infused Documented By: Admin: 12/24/24 11:38 Dose: 125 mls/hr Documented By: Infusion: 12/24/24 11:06 Dose: Infused Documented By: Admin: 12/24/24 03:06 Dose: 125 mls/hr Documented By: Infusion: 12/24/24 03:05 Dose: Infused Documented By: Admin: 12/23/24 18:34 Dose: 125 mls/hr Documented By: Infusion: 12/23/24 18:34 Dose: Infused Documented By: Infusion: 12/23/24 13:07 Dose: 125 mls/hr Documented By: Admin: 12/23/24 09:13 Dose: 75 mls/hr Documented By: Infusion: 12/23/24 07:49 Dose: Infused Documented By: Admin: 12/22/24 18:29 Dose: 75 mls/hr Documented By: LYN Magnesium Sulfate/Dextrose (Magnesium Sulfate / D5w) 1 gm in 100 mls @ 50 mls/hr IV Q2H JEFFERSON Stop: 12/25/24 17:44 Last Admin: 12/25/24 11:50 Dose: 50 mls/hr Documented By: Infusion: 12/25/24 11:50 Dose: Infused Documented By: Admin: 12/25/24 09:44 Dose: 50 mls/hr Documented By: Infusion: 12/25/24 09:44 Dose: Infused Documented By: Admin: 12/25/24 07:51 Dose: 50 mls/hr Documented By: IGNACIO
--- NOTE | 2024-12-25 13:56 | Infectious Disease Consult ---
Date of Service December 25, 2024 Telehealth Information I performed this visit using a real-time telehealth connection between my location and the patients location ([facility]). After connecting through interactive tele-video, patient was identified by name and date of and/or wristband check.Patient (or authorized healthcare financial services representative) was informed that this was a telemedicine visit and it was being conducted confidentially over secure lines. My office door was closed and no one else was present in the room with me.Patient (or authorized healthcare financial services representative) provided consent to proceed with the visit, expressed an understanding of privacy and security of the telemedicine visit, and gave permission to have a hospital financial services representative in the room in order to assist with the visit and to conduct portions of the visit, as needed. I informed the patient (or authorized healthcare financial services representative) that I reviewed their record and presented the opportunity for them to ask any questions regarding the visit today. The patient agreed to participate. Assessment & Plan (1) Neutropenic fever: Plan: No infection identified by micro studies or imaging to date. This is not unusual with febrile neutropenia. Underlying disease or use of filgastrim/transfusions in the hospital can be contributing factors. ANC now >1000, so observing off abx is not unreasonable though I would ideally like to see her fever curve continue to improve. No clear need to obtain other micro studies at this time. Continue to follow blood cultures. (2) History of endometrial cancer: Plan: CT shows likely peritoneal carcinomatosis. This may be a contributing factor to her current presentation. Role for further chemo unclear, and she will be at high risk for recurrent febrile neutropenia and infection. Consider palliative care consultation. History of Present Illness History of Present Illness Ms. Hardy is a 64yo woman with a h/o endometrial/ovarian CA. She recently started a new regimen of chemotherapy on 12/08 with cisplatin and etoposide. She states this was "rough" and has had a lot of side effects. She developed fever and was told top ggo to the ED by her oncologist. She was febrile and had neutropenia. She was started on cefepime and given filgastrim. Her cultures have remained negative and she has continued to have fevers. Last PM she feels like she did not sleep at all and today feels very tired. Overall though she does feel a little better. Appetite is stable, but not great. No N/V. No diarrrhea (she has an ostomy and output has been regular). No rash. No dysuria. No sore throat, WALTER, cough or SOB. No recent sick contacts. Her WBC is now improved. Allergies Allergy/AdvReac Type Severity Reaction Status Date / Time No Known Allergies Allergy Verified 04/01/24 02:37 Home Medications Medication Instructions Recorded Confirmed Type olanzapine 10 mg tablet 10 mg PO DIRECTED PRN Other 12/22/24 12/22/24 History ondansetron HCl 8 mg tablet 8 mg PO DIRECTED PRN n/v 12/22/24 12/22/24 History Patient History Medical History Breast nodule Malnutrition Endometrial cancer Ovarian cancer Social History Smoking Status: Never smoker Second Hand Exposure: No; Do You Dip or Chew Tobacco: No; Hx Alcohol Use: No Hx Substance Use: No Preferred Language: Emirati Communication Ability: Effective Installation Service Representative Required: No Beliefs That Will Affect Care: None Current Living Situation: Alone Feels Safe at Home: Yes Assistive Devices: Cane and Walker Review of Systems Gen- Fatigue HEENT- No sore throat, ocular injection, (+) epistaxis Resp- No cough or SOB CV- no chest pain Abd- No N/V, diarrhea, or abdominal pain - No dysuria or discharge Skin- No rash MSK- No joint swelling or pain Neuro- No focal deficits Physical Exam Gen- Ill-appearing, tired HEENT- OP clear, neck wtih ROM intact Resp- No PICHARDO on RA Skin- No rash Neuro- Alert and oriented x 3 Results & Data Vital Signs (Past 12 Hours) Vital Signs Temp Pulse Pulse Resp BP Pulse Ox O2 Del Method 12/25/24 11:54 36.6 C 84 17 133/70 94 Room Air 12/25/24 08:44 36.8 C 84 17 131/73 95 Room Air 12/25/24 07:39 82 12/25/24 04:10 37.4 C 12/25/24 03:58 39.5 C H 102 H 18 161/76 H 94 Room Air Laboratory Results WBC 0.5 -> 1.7 (ANC 1.09) Hgb 7.3 Platelets 17 UA with 6-10 WBC Na 136 Creatinine 0.7 BUN 13 Diagnostic Findings RVP negative MRSA screen negative Blood cultures 12/22/[address] chest reviewed by me: IMPRESSION: 1. The heart is mildly enlarged. This is trace pericardial effusion. 2. There is a Port-A-Cath on the right with the catheter tip at the cavoatrial junction. 3. Trace right pleural effusion measuring less than 1 cm with trace amount of subsegmental atelectasis in both lung bases. The lungs are otherwise clear. CT abdomen/pelvis reviewed by me: IMPRESSION: 1. There is a trace amount of ascites in the abdomen as well as marbling of the omental fat and scattered mesenteric nodules consistent with peritoneal carcinomatosis. 2. There is a 1.5 cm gallstone within a nondilated gallbladder. No definite surrounding inflammation, biliary duct dilation, or choledocholithiasis is seen. 3. Bowel loops are nondilated. There is a trace amount of fluid in the right pericolic gutter. There is a left lower quadrant colostomy. No acute inflammatory changes are seen involving the bowel.
--- NOTE | 2024-12-25 20:16 | Communication Note ---
Date of Service: December 25, 2024 Patient with fever spike as per RN. No cough or diarrhea symptoms. AP Neutropenic fever Elevated procalcitonin Restart cefepime Add vancomycin given a port device
[2024-12-25] MEDS: NSS + 20MEQ KCL 20 MEQ/1,000 ML BAG IV ONE (20:38)
[2024-12-25] MEDS ORDERED: VANCOMYCIN CONSULT ACTIVE PRN (21:05)
[2024-12-25] MEDS: VANCOMYCIN HCL 1,750 MG in SODIUM CHLORIDE 0.9% 500 ML IV ONE (21:37)
[2024-12-25] MEDS: CEFEPIME 2000MG 2,000 MG/20 ML SYR IV SCH (22:30)
[2024-12-25] MEDS: KETOROLAC TROMETHAMINE 15 MG/ML VIAL IV ONE (23:51)
[2024-12-26] MEDS: VANCOMYCIN CONSULT ACTIVE ONE (07:24)
[2024-12-26 07:28] LABS: Albumin Level 2.6 gm/dl (3.4-5.0); Bilirubin,Total 0.3 mg/dl (0.2-1.0); Calcium 7.7 mg/dl (8.6-10.3); Magnesium 1.8 mg/dl (1.7-2.4)
[2024-12-26 07:37] LABS: Albumin Globulin Ratio 0.9 (0.9-2); BUN Creatinine Ratio 21.9 (10-20); Creatinine Clr Calc Pharmacy 76.4 ml/min; Globulin 2.9 gm/dl (2.5-4.0); Phosphorus 2.5 mg/dl (2.5-4.9); Total Protein 5.5 gm/dl (6.0-8.3)
[2024-12-26] MEDS: VANCOMYCIN HCL 1,250 MG in SODIUM CHLORIDE 0.9% 250 ML IV SCH (07:58)
[2024-12-26 08:08] VITALS: RESP 20
[2024-12-26 08:38] LABS: Hematocrit (blood only) 23.9 % (37.0-47.0); Hemoglobin 7.9 g/dl (12.0-16.0); Mean Corpuscular Hemoglobin 30.4 pg (25.0-34.0); Mean Corpuscular Hgb Conc 33.1 g/dL (32.0-36.0); Mean Corpuscular Volume 91.9 fL (80.0-100.0); Mean Platelet Volume 10.7 fL (9.4-12.4); Platelet Count 25 K/uL (130-400); RDW Coefficient of Variation 13.2 % (11.5-14.5); RDW Standard Deviation 43.8 fL (36.4-46.3)
[2024-12-26 08:58] LABS: Basophils # (auto) 0.01 K/uL (0.00-0.20); Basophils % (auto) 0.4 %; Immature Granulocytes % (auto) 7.3 %; Lymphocytes # (auto) 0.42 K/uL (1.20-3.40); Lymphocytes % (auto) 15.3 %; Monocytes # (auto) 0.19 K/uL (0.11-0.59); Monocytes % (auto) 6.9 %; Neutrophils # (auto) 1.92 K/uL (1.40-6.50); Neutrophils % (auto) 70.1 %; RBC Morphology Unremarkable; White Blood Count 2.74 K/ul (4.8-10.8)
[2024-12-26 11:28] VITALS: BP 131/71; TEMP 98.1; O2SAT 92
--- NOTE | 2024-12-26 11:46 | Pharmacy Report ---
Pharmacy PK ABX Note - Date of Service December 26, 2024 - Assessment and Plan Assessment 64 year old F receiving vancomycin/cefepime for treatment of neutropenic fever. Pertinent microbiologic data includes: blood cultures NGx48 hours. Day # 1 of vancomycin therapy. Plan Vancomycin * Loading dose: 1750 mg IV x 1 * Maintenance dose: 1250 mg IV every 12 hours, will decrease dose slightly to vancomycin 1000mg due to updated pharmacokinetic data * Regimen is predicted to achieve target AUC/ARLENE of 400-600 mg/L.hr * Random level to be ordered if continued beyond 48 hours. Pharmacy will continue to follow and will adjust dose/frequency as necessary. Thank you. Pharmacy has transitioned to AUC monitoring for vancomycin. AUC/ARLENE is the preferred PK/PD target and is associated with decreased risk of nephrotoxicity compared to traditional trough targets.
--- NOTE | 2024-12-26 13:55 | Discharge Summary ---
Discharge Summary Date of Service December 26, 2024 Principal Dx & Hospital Course #1 = Principal Diagnosis (1) Pancytopenia: Patient is a 64 year old female with past medical history significant for endometrial/ovarian cancer, hysterectomy, colostomy, malnutrition, who presents with fever and nose bleed x1 day that started this morning. She went to her routine followup appointment with Dr. Alves for anticipated chemo treatment scheduled for this coming Wednesday, but was found to have . Completed initial cycle of Cisplatin/Etoposide on 12/08. Had URI symptoms last week without fever or cough, self-limited and now resolved. Reports having weakness, fatigue, no appetite since last chemo treatment. Denies chest pain, swelling, breathing difficulty, urinary symptoms, N/V/D, rectal/urinary bleeding, injuries, falls, cognitive changes. #Pancytopenia #Febrile Neutropenia, improving * ID consulted, feel unlikely fever is infectious in nature * discussed case with Dr. Alves her oncologist * GOC discussed, see above, patient would like to go home on hospice services, and if improves will reconsider treatment of cancer #Hypomagnesemia #Hypokalemia * replenished * likely in setting of chemotherapy #Thrombocytopenia s/p chemo treatment Endometrial CA with cisplatin/etoposide: * continue to trend #Epistaxis: * Given Afrin in the ED with resolution * Will continue to monitor #Hypomagnesemia: * resolved [facility] minutes discussing goals and values with patient, sisters, and granddaughter. Meeting began with discussing her clinical situation. 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 Discussed goals and values. Patient states she enjoys being at home and being comfortable, and is scared of staying in the hospital or coming back to the hospital. She is also scared of chemotherapy. She loves being around her family. Discussed options clinically moving forward: one option of staying in hospital for next few days for the fevers with discharge home for follow up with Dr. Alves for discussion of further treatment options, another option of discharge home today with home health and follow up with Dr. Alves and list of hospice agencies if she declines, and one option of going home today with hospice services and fully focusing on comfort (and if she improves then sign off of hospice to purseu further treatments). Long discussion regarding these options with patient and family, all questions answered to best of my ability. Patient chose going home with home hospice, and reevaluating hospice down the road if she improves enough to consider treatment. [place] of choice given, family and patient requested [facility] services. Discussed resuscitation at length, risks and benefits explained. Patient does not want to return to the hospital and does not want resuscitation (chest compressions, intubation) at this time. Patient DNRDNI. (2) Neutropenia: (3) Thrombocytopenia: (4) Epistaxis: (5) Hypomagnesemia: (6) Ovarian cancer: (7) Endometrial cancer: Notes For Next Care Provider Patient is a 64 year old female with past medical history significant for endometrial/ovarian cancer, hysterectomy, colostomy, malnutrition, who presents with fever and nose bleed. In the ED, noted pancytopenia, admitted to medicine. Patient treated with empiric cefepime for febrile neutropenia, imaging and workup unremarkable for infectious etiology. Discussed case with patients oncologist who recommended neupogen x3 days, which improved patients WBC count. ID consulted, recommended GOC in setting of no infectious source and significant peritoneal metastasis. GOC with patient and family, patient would like to go home and focus on comfort, and reevaluate if she improves. On 12/26/2024 patient discharged home with hospice. Medication Changes From Visit -see below Admission HPI Per Admitting Provider Patient is a 64 year old female with past medical history significant for endometrial/ovarian cancer, hysterectomy, colostomy, malnutrition, who presents with fever and nose bleed x1 day that started this morning. She went to her routine followup appointment with Dr. Alves for anticipated chemo treatment kenneth eduled for this coming Wednesday, but was found to have . Completed initial cycle of Cisplatin/Etoposide on 12/08. Had URI symptoms last week without fever or cough, self-limited and now resolved. Reports having weakness, fatigue, no appetite since last chemo treatment. Denies chest pain, swelling, breathing difficulty, urinary symptoms, N/V/D, rectal/urinary bleeding, injuries, falls, cognitive changes. In the emergency room, she had a fever of 37.5 with evidence of pancytopenia WBC 0.5, Neut 0.15, Lymph 0.28, Sunflower 0.06, platelets low at 5. No evidence of sepsis, although Procal elevated at 0.8. Hemodynamically stable. Cefepime was initiated. 1 unit Platelets given. Chest Xray showed no acute findings. EKG showing NSR, QTc 396. MRSA/Biofire negative. Blood cultures. Clinically dry and given IV fluids. Per external chart review, the patient was found to have a cystic mass measuring 23 x 15 x 28 cm in the abdomen, arising from the pelvis and extending to the abdomen with bilateral hydronephrosis and hydroureter on 03/2024 On 04/2024 she underwent exploratory laparotomy, total abdominal hysterectomy with bilateral salpingo-oophorectomy, sigmoid-rectum resection with descending colon end-ostomy (per general surgery), cystourethroscopy. 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 There was involvement of the fallopian tube as well. She completed 6 cycles of Taxol plus carboplatin in Avastin combination then placed on maintenance Avastin for a few weeks. She then went to [facility] for a second opinion and was given the recommendation to begin Cisplatin and Etoposide- her first treatment ended on 12/08. Discussed patient condition with Susi Soto Heme/Onc, via [place] text regarding Neupogen management in the setting of pancytopenia. Labs reviewed and per Kaiden Soto advised for up to 5 days treatment pending labs. History obtained from the patient, her sister who was at the bedside and via external chart review. Discharge Exam Gen: A&O 3 NAD, sarcopenia noted HEENT: NCAT, EOMI, not icteric. External ears normal. No rhinorrhea. Moist mucous membranes. Neck: Supple, full range of motion, no observable masses, No meningeal sign. Lungs: No Respiratory distress. CV: RRR, no edema. Abdomen: Soft, nondistended, No rebound tenderness. MSK: No joint swelling, no redness. Skin: No rashes, petechiae, lesions. Normal color per patient. Neuro: Normal Gait, Grossly intact. Psych: Appropriate for situation. Updated Medication List Medication Instructions Recorded Confirmed Type olanzapine 10 mg tablet 10 mg PO DIRECTED PRN Other 12/22/24 12/22/24 History ondansetron HCl 8 mg tablet 8 mg PO DIRECTED PRN n/v 12/22/24 12/22/24 History acetaminophen 500 mg capsule 1,000 mg (2 x 500 mg) PO Q6H PRN 12/26/24 Rx fever or pain #60 caps acetaminophen 650 mg rectal 650 mg MN Q4H PRN fever #12 ea 12/26/24 Rx suppository bisacodyl 10 mg rectal suppository 10 mg MN DAILY PRN constipation 12/26/24 Rx #12 ea lorazepam 0.5 mg tablet (Ativan) 0.5 mg PO Q8H PRN 12/26/24 Rx anxiety/agitation #10 tabs morphine 10 mg/5 mL oral solution 5 mg (2.5 mL) PO .q3 PRN pain #100 12/26/24 Rx mL polyethylene glycol 3350 17 17 g PO DAILY PRN constipation 12/26/24 Rx gram/dose oral powder (Miralax) #119 grams Hospital Stay Data Consultations 12/22/24 13:06 ED Decision to Admit Stat 12/23/24 11:45 Consult Oncology Routine 12/25/24 07:54 Consult Infectious Diseases Routine Diagnostic Imagining Performed 12/24/24 18:13 CT Abd and Pelvis [CT abd pelvis IV con only] Routine CT chest diagnostic wo con Routine US venous duplex arm [US venous doppler UE RT] Routine Pending Results Patient Have Any Pending Studies at Discharge: No Discharge Instructions Given to Patient (Per Discharging Provider) 1. Discharging home with home hospice services. 2. If condition improves and would like to discuss further treatment options, please follow up Dr. Alves, who is aware of the plan. Total Time Total Time Spent Total Time Spent (In Minutes): I spent a total of 35 minutes in direct patient care, including [id number] time with the patient and/or family, reviewing medical records, ordering and reviewing diagnostic tests, and coordinating care with other healthcare providers. This time includes: history taking, physical examination, medical decision making, counseling, ECG interpretation, imaging interpretation, lab interpretation, orders, and education, excluding time spent in the performance of separately billed services.
[2024-12-26 14:56] VITALS: PULSE 94
[2024-12-26] MEDS ORDERED: VANCOMYCIN HCL 1,000 MG/270 ML BAG IV SCH (20:00)
== END 2024-12-26 15:42 | disposition hospice, home (50) | DRG 809 ==
LOC: ED 11:14 → 2N 14:26 → SUATTDRO 14:26 → 2N 17:03

== ENCOUNTER 2025-02-01 09:49 | Inpatient (IN) ==
--- NOTE | 2025-02-01 10:23 | Emergency Department Note ---
Impression & Plan Septic shock, Metastatic cancer, Respiratory failure, Endometrial cancer, Hypomagnesemia, Acute renal failure, Elevated troponin, High anion gap metabolic acidosis ED Provider Note NAME: CLAUDE HENDERSON AGE: 64 SEX: F : 1960 ARRIVES VIA: Walk-In INFORMANT: Patient ED PROVIDER(S): Nii Bearden MD CHIEF COMPLAINT: Metastatic cancer, sepsis, referred PLAN: Disposition: Admit MEDICAL DECISION MAKING: The patient is a pleasant 64-year-old woman with a past medical history of metastatic endometrial cancer who presents to the emergency department via walk- in accompanied by her sister and referred by her oncology office for concern for sepsis where the patient was noted to be febrile and tachycardic in the office where they report that the patient had bacteria in her urine yesterday. The patient has not had chemotherapy for over a month in the setting of her recent hospitalization in December for sepsis and pancytopenia. She had been discharged to hospice care at the time but signed off of hospice care this past Wednesday to potentially resume treatment which was what her visits were for yesterday and today. Patient denies any cough or congestion. She has any chest pain or shortness of breath. She denies vomiting or change in her ostomy output. She reports feeling generalized weakness and lightheadedness. On my evaluation the patient is ill-appearing, afebrile with heart in the 140s and blood pressure 70s/50s and vital signs otherwise stable. Lungs are clear. She appears clinically dry. Patient was administered 30 cc/KG of NSS for IVF setting concern for sepsis and blood pressure was fluid responsive. Heart rate also showed trending improvement though still in the 130s. EKG without overt acute ischemia. CXR negative for acute cardiopulmonary process per my personal preliminary review/interpretation. WBC 19K with neutrophilia and left shift. H/H stable and improved from prior. Platelets 1 40K, improved from prior values. Creatinine 2.43 with BUN of 56 consistent with patient's clinically dry appearance. Bicarbonate is 17 with anion gap of 17 and initial lactic acid of 3.7. Magnesium 1.0. LFTs unremarkable. Initial high-sensitivity troponin 72.7, nonspecific. Procalcitonin is greater than 100 consistent with suspicion for sepsis. TSH within normal limits. Urinalysis eventually obtained and demonstrated 4+ bacteria and WBCs. Respiratory BioFire was negative. Empiric antibiotics initiated with IV cefepime and vancomycin. The patient confirms that she is no longer under hospice care and is in agreement with plan for admission for further management. CT imaging without contrast of the chest abdomen pelvis were ordered and pending. Case was discussed with Susi Salazar, with Dr. Kang, [facility] hospitalist who will evaluate the patient for admission. CT without contrast of the chest and abdomen pelvis were completed and demonstrate new right lung apical nodularity compared to December and diffuse progressive omental metastatic disease as well as progressive serosal hepatic metastatic disease and hydronephrosis of right kidney which is new CT suspected metastatic lesion in the pelvis. Of note, following return from CT nursing noted that the patient had become briefly unresponsive and was hypoxic in severe respiratory distress. Code purple was called and patient was transferred to critical care room in A1. Case was additionally discussed with admitting team at the bedside. Patient appeared cyanotic with O2 saturation in the 70s though rapidly improving to 100% nonrebreather. Patient was alert and oriented. Lungs with slight crackles at the bases. Limited bedside ultrasound demonstrated B-lines of bilateral lung lainez suggestive of developing pulmonary edema. Limited bedside cardiac ultrasound demonstrated dilated LV with limited view of the apex of the with suggestion of hypokinesis on visualized portion. Equivocal septal bowing which may suggest increased right-sided pressures raising the possibility of possible PE in the setting of the patient's metastatic cancer and acute hypoxia and persistent tachycardia. Blood pressure began to downtrend and the patient was hypotensive. Phenylephrine initiated at 0.5mcg/kg/min. Given the patient's persistent tachycardia in the 160s and concern for possible developing stress cardiomyopathy. Blood pressure did normalize but with marginal improvement in heart rate subsequently down to the 150s. O2 saturation was 100% now on BiPAP with subsequent ABG showing appropriate oxygenation and so FiO2 down titrated. Given the patient's hypoxia and tachycardia we agreed with plan to proceed with CT imaging with IV contrast to rule out pulmonary embolism. Patient subsequent taken to ICU for further management. Further management per admitting team. Triage Nursing notes reviewed and agree them. Prior/external medical records reviewed Vital Signs: reviewed Differential diagnosis: Sepsis, UTI, pneumonia, metabolic, electrolyte abnormalities, cardiac sources, intracerebral event, toxicologic, neurologic, as well as other pathologies. ER treatment provided: See below. Diagnostics interpreted by me: ECG: Sinus tachycardia, 134 bpm, no ectopy, no overt ST elevation or depression, QTc 427, QRS 72 Cardiac Monitoring: An order for continuous cardiac monitoring was placed and demonstrated sinus tachycardia, 134 bpm, no ectopy. Laboratory studies: See below Imaging studies: See below Consultation(s): Susi Salazar, with [facility] HPI: Per MDM. ROS: See above HPI for pertinent positives & negatives. A total of 10 systems reviewed and were otherwise negative. VITALS:See Below PHYSICAL EXAMINATION: GENERAL: Awake, alert, ill-appearing, in no distress HENT: Normocephalic, atraumatic. Oropharynx with dry mucous membranes and otherwise unremarkable. EYES: Normal conjunctiva. Sclera non-icteric. NECK: Supple. No nuchal rigidity. FROM. No JVD. RESPIRATORY: Clear to auscultation. CARDIAC: Tachycardic rate, normal rhythm. Extremities warm and well perfused. Pulses equal. ABDOMEN: Soft, non-distended. No tenderness to palpation. No rebound or guarding. Left lower quadrant colostomy site clean dry and intact. MUSCULOSKELETAL: Chest examination reveals no tenderness. The back is symmetrical on inspection without obvious abnormality. There is no CVA tenderness to palpation. No joint edema. LOWER EXTREMITIES: Calves are equal size bilaterally and non-tender. No edema. No discoloration. NEURO: Normal sensorium. No sensory or motor deficits noted. SKIN: No rash or jaundice noted. ED COURSE: Critical Care: I have personally spent greater than 45 minutes of critical care time in the direct management of this patient. This includes bedside care, interpretation of diagnostic studies, and testing, discussion with consultants, patient, and family members, and other required patient management activities. This 45 minutes is in excess of all separately billable procedures. Nii Bearden MD Past Med/Surg History Problem List (Updated 01/26/25 @ 00:08 by Background Daramón) High anion gap metabolic acidosis (Acute) Elevated troponin (Acute) Acute renal failure (Acute) Septic shock (Acute) Respiratory failure (Acute) Sepsis Metastatic cancer (Acute) Ovarian cancer Endometrial cancer (Acute) Hypomagnesemia (Acute) Colostomy status Medical History (Updated 02/01/25 @ 19:13 by Nii Bearden MD) Neutropenia Thrombocytopenia Pancytopenia Epistaxis Neutropenic fever History of endometrial cancer Breast nodule Malnutrition Social History Smoking Status: Never smoker Second Hand Exposure: No; Do You Dip or Chew Tobacco: No; Hx Alcohol Use: No Hx Substance Use: No Preferred Language: Wallisian Communication Ability: Effective Rippler Required: Voice Beliefs That Will Affect Care: None Current Living Situation: Alone Feels Safe at Home: Declines to Answer Assistive Devices: Cane and Walker Allergies Allergies Allergy/AdvReac Type Severity Reaction Status Date / Time No Known Allergies Allergy Verified 04/01/24 02:37 Home Meds Home Medications Medication Instructions Recorded Confirmed potassium chloride 20 mEq 20 meq PO BID 02/01/25 02/01/25 tablet,extended release(part/cryst) Previous Rx's Medication Instructions Recorded acetaminophen 500 mg capsule 1,000 mg (2 x 500 mg) PO Q6H PRN 12/26/24 fever or pain #60 caps acetaminophen 650 mg rectal 650 mg WA Q4H PRN fever #12 ea 12/26/24 suppository bisacodyl 10 mg rectal suppository 10 mg WA DAILY PRN constipation 12/26/24 #12 ea lorazepam 0.5 mg tablet (Ativan) 0.5 mg PO Q8H PRN 12/26/24 anxiety/agitation #10 tabs morphine 10 mg/5 mL oral solution 5 mg (2.5 mL) PO .q3 PRN pain #100 12/26/24 mL polyethylene glycol 3350 17 17 g PO DAILY PRN constipation 12/26/24 gram/dose oral powder (Miralax) #119 grams Results & Data (ED) Vital Signs Vital Signs - 24 hr 02/01/25 10:11 02/01/25 10:18 02/01/25 10:22 Temperature 37.2 C Temperature Source Oral Pulse Rate 141 H 135 H Pulse Rate from SpO2 Sensor Respiratory Rate 20 Respiratory Effort / Characteristics Non-Labored Spontaneous Respiratory Depth Normal Respiratory Pattern Regular Blood Pressure 74/52 L 82/57 L Blood Pressure Mean 59 62 Pulse Oximetry 97 Oxygen Delivery Method Room Air Sepsis Recent Fever Within 48 Hours No Sepsis New/Unexplained Change in Mental Status Yes Sepsis Action Taken by Nursing Physician Notified 02/01/25 10:33 02/01/25 10:42 02/01/25 11:06 Temperature Temperature Source Pulse Rate 134 H 133 H 130 H Pulse Rate from SpO2 Sensor 130 H Respiratory Rate 29 H 28 H 29 H Respiratory Effort / Characteristics Respiratory Depth Respiratory Pattern Blood Pressure 80/51 L 96/59 L Blood Pressure Mean 60 71 Pulse Oximetry 98 Oxygen Delivery Method Sepsis Recent Fever Within 48 Hours Sepsis New/Unexplained Change in Mental Status Sepsis Action Taken by Nursing 02/01/25 11:18 02/01/25 11:27 02/01/25 11:45 Temperature Temperature Source Pulse Rate 130 H 130 H 130 H Pulse Rate from SpO2 Sensor 130 H 130 H 131 H Respiratory Rate 24 24 14 Respiratory Effort / Characteristics Respiratory Depth Respiratory Pattern Blood Pressure 104/66 109/68 112/68 Blood Pressure Mean 78 81 82 Pulse Oximetry 98 94 95 Oxygen Delivery Method Sepsis Recent Fever Within 48 Hours Sepsis New/Unexplained Change in Mental Status Sepsis Action Taken by Nursing 02/01/25 12:03 02/01/25 12:15 02/01/25 12:30 Temperature Temperature Source Pulse Rate 131 H 132 H 130 H Pulse Rate from SpO2 Sensor 131 H 133 H 130 H Respiratory Rate 12 22 22 Respiratory Effort / Characteristics Respiratory Depth Respiratory Pattern Blood Pressure 110/66 111/64 121/67 Blood Pressure Mean 80 79 85 Pulse Oximetry 94 97 95 Oxygen Delivery Method Sepsis Recent Fever Within 48 Hours Sepsis New/Unexplained Change in Mental Status Sepsis Action Taken by Nursing Laboratory Data 02/01/25 16:35 02/01/25 16:41 Lab Results 02/01/25 02/01/25 02/01/25 Range/Units 10:31 12:18 12:49 WBC 19.01 H (4.8-10.8) K/ul RBC 2.99 L (4.20-5.40) M/uL Hgb 8.5 L (12.0-16.0) g/dl Hct 27.2 L (37.0-47.0) % MCV 91.0 (80.0-100.0) fL MCH 28.4 (25.0-34.0) pg MCHC 31.3 L (32.0-36.0) g/dL RDW Std Deviation 60.4 H (36.4-46.3) fL RDW Coeff of Paul 18.4 H (11.5-14.5) % Plt Count 140 (130-400) K/uL MPV 9.2 L (9.4-12.4) fL Immature Gran % (Auto) 1.2 % Neut % (Auto) 93.3 % Lymph % (Auto) 2.1 % Cassia % (Auto) 3.3 % Eos % (Auto) 0.0 % Baso % (Auto) 0.1 % Neut # (Auto) 17.75 H (1.40-6.50) K/uL Lymph # (Auto) 0.40 L (1.20-3.40) K/uL Cassia # (Auto) 0.62 H (0.11-0.59) K/uL Eos # (Auto) 0.00 (0.00-0.50) K/uL Baso # (Auto) 0.02 (0.00-0.20) K/uL Immature Gran # (Auto) 0.22 H (0.01-0.20) K/uL Absolute Nucleated RBC 0.04 (0.00-0.12) K/uL Nucleated RBC % (auto) 0.2 % Toxic Vacuolation 1+ Dohle Bodies 1+ Polychromasia 1+ PT 11.8 (9.0-12.0) Seconds INR 1.1 (0.9-1.1) Sodium 137 (136-145) mmol/L Potassium 4.6 (3.5-5.1) mmol/L Chloride 103 (98-107) mmol/L Carbon Dioxide 17 L (21-32) mmol/L Anion Gap 17 H (3-11) BUN 56 H (6-23) mg/dl Creatinine 2.43 H (0.6-1.2) mg/dl Est Cr Clr Drug Dosing Not Reportable eGFR 21.81 BUN/Creatinine Ratio 23.0 H (10-20) Glucose 188 H (70-99(Fasting)) mg/dl Lactate 3.7 H* 3.1 H* (0.4-2.0) mmol/L Calcium 9.8 (8.6-10.3) mg/dl Phosphorus 3.9 (2.5-4.9) mg/dl Magnesium 1.0 L (1.7-2.4) mg/dl Total Bilirubin 0.3 (0.2-1.0) mg/dl Direct Bilirubin 0.1 (0-0.2) mg/dl AST 43 H (13-39) U/L ALT 20 (7-52) U/L Alkaline Phosphatase 130 H (34-104) U/L Troponin I High Sens 72.7 H* 51.1 H* D (0-14) pg/ml Total Protein 6.7 (6.0-8.3) gm/dl Albumin 3.1 L (3.4-5.0) gm/dl Procalcitonin > 100.00 H (0-0.5) ng/ml TSH 2.830 (0.300-4.500) uIu/ml Urine Color Yellow Urine Appearance Turbid A (Clear) Urine pH 5.0 (4.5-7.5) Ur Specific [place] 1.019 (1.000-1.030) Urine Protein 2+ H (Negative) Urine Glucose (UA) Negative (Negative) Urine Ketones Trace H (Negative) Urine Blood 3+ H (Negative) Urine Nitrite Negative (Negative) Urine Bilirubin Negative (Negative) Urine Urobilinogen Negative (Negative) Ur Leukocyte Esterase 3+ H (Negative) Urine WBC (Auto) >50 H (0-5) /hpf Urine RBC (Auto) 0-2 (0-2) /hpf U Hyaline Cast (Auto) >20 H (0-2) /lpf U Epithel Cells (Auto) 0-2 (0-2) /hpf Urine Bacteria (Auto) 4+ H (None Seen) Urine Comment Administered Medications Phenylephrine HCl (Phenylephrine/Nss) 25 mg in 250 mls @ 8.304 mls/hr IV .Q24H [facility]; Protocol Stop: 03/03/25 15:25 Last Titration: 02/01/25 18:52 Dose: 0.3 mcg/kg/min, 12.5 mls/hr Documented By: YARELIS Co-signed By: BK Titration: 02/01/25 18:22 Dose: 0.2 mcg/kg/min, 8.3 mls/hr Documented By: YARELIS Co-signed By: NMK Titration: 02/01/25 17:31 Dose: 0.1 mcg/kg/min, 4.2 mls/hr Documented By: YARELIS Co-signed By: NMK Titration: 02/01/25 16:13 Dose: 0 mcg/kg/min, 0 mls/hr Documented By: KJL Co-signed By: rmt Titration: 02/01/25 16:11 Dose: 0.3 mcg/kg/min, 12.5 mls/hr Documented By: ARTURO Co-signed By: rmt Admin: 02/01/25 15:20 Dose: 0.5 mcg/kg/min, 20.8 mls/hr Documented By: JEANCARLOS Co-signed By: JACKELINK Magnesium Sulfate/Dextrose (Magnesium Sulfate / D5w) 1 gm in 100 mls @ 50 mls/hr IV Q2H JEFFERSON Stop: 02/01/25 23:44 Last Admin: 02/01/25 17:55 Dose: 50 mls/hr Documented By: Infusion: 02/01/25 17:55 Dose: Infused Documented By: Admin: 02/01/25 16:20 Dose: 50 mls/hr Documented By: ARTURO Acetaminophen (Ofirmev) 1,000 mg in 100 mls @ 400 mls/hr IV Q8H PRN PRN Reason: Pain or Fever Stop: 02/04/25 16:01 Last Infusion: 02/01/25 16:27 Dose: Infused Documented By: Admin: 02/01/25 16:12 Dose: 400 mls/hr Documented By: ARTURO Propofol (Diprivan) 1,000 mg in 100 mls @ 16.128 mls/hr IV .Q6H13M JEFFERSON; Protocol Stop: 02/04/25 16:44 Last Titration: 02/01/25 17:21 Dose: 40 mcg/kg/min, 16.1 mls/hr Documented By: Titration: 02/01/25 16:58 Dose: 30 mcg/kg/min, 12.1 mls/hr Documented By: Admin: 02/01/25 16:45 Dose: 20 mcg/kg/min, 8.1 mls/hr Documented By: YARELIS Co-signed By: MTP Parenteral Electrolytes (Plasma-Lyte A Ph 7.4) 1,000 mls @ 80 mls/hr IV .Q40Q53Q JEFFERSON Stop: 02/04/25 17:29 Last Admin: 02/01/25 17:29 Dose: 80 mls/hr Documented By: YARELIS Miscellaneous (Icu Protocol For Hyperglycemia) 1 each N/A ACHS JEFFERSON Stop: 02/03/25 16:29 Last Admin: 02/01/25 16:27 Dose: Not Given Documented By: YARELIS Propofol (Propofol Bolus From Bag) 20 mg IV Q5M PRN PRN Reason: Sedation Stop: 02/04/25 16:31 Last Admin: 02/01/25 16:58 Dose: 20 mg Documented By: YARELIS Co-signed By: MTP Discontinued Medications Acetaminophen (Acetaminophen 1000 Mg/100 Ml Iv) Confirm Administered Dose 1,000 mg IV .STK-MED ONE Stop: 02/01/25 16:07 Last Admin: 02/01/25 16:15 Dose: Not Given Documented By: ARTURO Sodium Chloride (Nss) 1,000 mls @ 999 mls/hr IV .Q1H1M JEFFERSON Stop: 02/01/25 12:30 Last Infusion: 02/01/25 12:22 Dose: Infused Documented By: Admin: 02/01/25 11:08 Dose: 999 mls/hr Documented By: Infusion: 02/01/25 11:08 Dose: Infused Documented By: Admin: 02/01/25 10:33 Dose: 999 mls/hr Documented By: CEF Cefepime HCl (Maxipime 2000mg) 2,000 mg in 20 mls @ 5 mls/min IV NOW STA; Protocol Stop: 02/01/25 10:24 Last Admin: 02/01/25 11:04 Dose: 5 mls/min Documented By: CEF Vancomycin HCl 1,750 mg/ (Sodium Chloride) 535 mls @ 200 mls/hr IV NOW ONE Stop: 02/01/25 14:49 Last Infusion: 02/01/25 16:28 Dose: Infused Documented By: Admin: 02/01/25 13:03 Dose: 200 mls/hr Documented By: CEF Piperacillin Sod/Tazobactam Sod (Zosyn) 4.5 gm in 100 mls @ 200 mls/hr IV NOW ONE; Protocol Stop: 02/01/25 15:42 Last Infusion: 02/01/25 17:32 Dose: Infused Documented By: Admin: 02/01/25 17:00 Dose: 200 mls/hr Documented By: YARELIS Lactated Ringer's (Lr) 1,000 mls @ 999 mls/hr IV .Q1H1M ONE Stop: 02/01/25 17:10 Last Infusion: 02/01/25 17:22 Dose: Infused Documented By: Admin: 02/01/25 16:17 Dose: 999 mls/hr Documented By: ARTURO Ioversol (Optiray 320 125ml) 118 ml IV ONCE ONE Stop: 02/01/25 15:32 Last Admin: 02/01/25 15:31 Dose: 118 ml Documented By: JDAEN Midazolam HCl (Midazolam Hcl 1 Mg/Ml 2ml Vial) Confirm Administered Dose 2 mg .ROUTE .STK-MED ONE Stop: 02/01/25 16:06 Last Admin: 02/01/25 16:16 Dose: Not Given Documented By: ARTURO Midazolam HCl (Midazolam Hcl 1 Mg/Ml 2ml Vial) 1 mg IV NOW STA Stop: 02/01/25 16:10 Last Admin: 02/01/25 16:15 Dose: Not Given Documented By: ARTURO Midazolam HCl (Midazolam Hcl 1 Mg/Ml 2ml Vial) 2 mg IV NOW STA Stop: 02/01/25 16:15 Last Admin: 02/01/25 16:19 Dose: 2 mg Documented By: ARTURO Miscellaneous (Rapid Sequence Induction Bag) Confirm Administered Dose 1 each N/A .STK-MED ONE Stop: 02/01/25 15:03 Last Admin: 02/01/25 16:16 Dose: Not Given Documented By: ARTURO Tineoaneous (Stat Iv Infusion Titration Per Protocol) 1 each N/A NOW STA; Protocol Stop: 02/01/25 15:27 Last Admin: 02/01/25 16:27 Dose: Not Given Documented By: YARELIS Ruedacellaneous (Rapid Sequence Induction Bag) Confirm Administered Dose 1 each N/A .STK-MED ONE Stop: 02/01/25 15:51 Last Admin: 02/01/25 16:15 Dose: Not Given Documented By: ARTURO Garcia (Stat Iv Infusion Titration Per Protocol) 1 each N/A NOW STA Stop: 02/01/25 16:33 Last Admin: 02/01/25 17:22 Dose: Not Given Documented By: YARELIS Phenylephrine HCl (Phenylephrine Hcl 25 Mg/250 Ml Nss) Confirm Administered Dose 25 mg IV .STK-MED ONE Stop: 02/01/25 15:18 Last Admin: 02/01/25 16:15 Dose: Not Given Documented By: ARTURO Propofol (Propofol Iv Emulsion 10 Mg/Ml 100 Ml Vial) Confirm Administered Dose 1,000 mg IV .STK-MED ONE Stop: 02/01/25 16:32 Last Admin: 02/01/25 16:57 Dose: Not Given Documented By: CA Imaging Data Radiologist's Impression: Chest X-Ray 02/01/25 10:20 XR chest 1V portable CLINICAL HISTORY: Sepsis COMPARISON STUDY: 12/22/2024 FINDINGS: Stable chest port. Heart size and pulmonary vasculature are normal. No consolidation or pleural effusion. No pneumothorax. IMPRESSION: No acute findings. ACT 112: Negative or not required by law. Electronically signed by: Noah Dong M.D. 02/01/2025 10:57 AM Abdomen/Pelvis CT 02/01/25 11:[address] WITHOUT CONTRAST CT DOSE: 1446 HISTORY: sepsis, metastatic ovarian CA TECHNIQUE: Multiaxial CT images of the abdomen and pelvis were performed without contrast. A dose lowering technique was utilized adhering to the principles of ALARA. COMPARISON STUDY: 12/24/2024 FINDINGS: ABDOMEN: There is increased size of a few subserosal masses anteriorly at the liver, largest measuring 6 cm greatest dimension. There are gallstones without evidence of acute cholecystitis. Spleen, pancreas, and adrenal glands are unremarkable. There are numerous progressive masses scattered diffusely throughout the omentum of the abdomen and pelvis measuring up to 6 cm, increased. There is no hydronephrosis on the left. There is interval mild hydronephrosis on the right. No renal or ureteral calculi. Pelvis: Urinary bladder is decompressed. There is stable partial colectomy with Marquez's pouch and left lower quadrant ostomy. Stable small parastomal hernia containing nonobstructed colon. No bowel inflammation or obstruction seen. No free fluid, free air, or abscess. Osseous structures: There is moderate lumbar degenerative disc disease. IMPRESSION: 1. Diffuse progressive omental metastatic disease throughout the abdomen and pelvis. Progressive serosal hepatic metastatic disease. 2. Interval mild hydronephrosis at the right kidney is likely due to a metastatic lesion in the pelvis. 3. No ascites. No bowel obstruction. ACT 112: Negative or not required by law. The above report was generated using voice recognition software. It may contain grammatical, syntax or spelling errors. Electronically signed by: Noah Dong M.D. 02/01/2025 1:[address] 02/01/25 11:53 CT OF THE CHEST WITHOUT IV CONTRAST CLINICAL HISTORY: Sepsis, metastatic ovarian CA. COMPARISON STUDY: Chest CT December 24, 2024. Chest radiograph performed earlier today. CT DOSE: 1445.81 mGy.cm TECHNIQUE: Axial images of the chest were obtained without IV contrast. Images were reviewed in the axial, sagittal, and coronal planes. IV contrast was not administered for this examination. Automated exposure control was utilized for the study. A dose lowering technique was utilized adhering to the principles of ALARA. FINDINGS: A right internal jugular [id number] is in place. Moderate cardiomegaly is again noted. There is a trace pericardial effusion, slightly decreased since prior examination. No enlarged axillary, mediastinal or hilar lymph nodes are present. The central airways are patent. There is no pneumothorax or pleural effusion. There is no consolidation to suggest pneumonia. Lungs are suboptimally assessed due to respiratory motion. A 5 mm right lower lobe nodule along the major fissure on image 100 is unchanged. A 7 mm right apical nodular density on image 48 is new since prior exam. Linear densities and groundglass opacities within the lungs favor atelectasis. Extensive upper abdominal peritoneal/omental disease has significantly progressed since CT of December 24, 2024. A 5.6 cm right hepatic lobe capsular implant has significantly increased in size. Please note that the abdomen and pelvis CT will be reported separately. IMPRESSION: 1. No consolidation to suggest pneumonia. 2. 7 mm right apical nodular density which is new since chest CT of December 24, 2024. This is indeterminate and can be assessed on follow-up exams. 3. Significant progression of upper abdominal peritoneal/omental metastases since CT of December 24, 2024. ACT 112: Negative or not required by law. Electronically signed by: Corky Palacios M.D. 02/01/2025 1:36 PM Discharge Plan Visit Data Chief Complaint: Infection Stated Complaint: CANCER-INFECTION ED Provider: Nii Bearden Discharge Problem: Septic shock, Metastatic cancer, Respiratory failure, Endometrial cancer, Hypomagnesemia, Acute renal failure, Elevated troponin, High anion gap metabolic acidosis Patient Disposition: Admitted As Inpatient Condition: Critical Discharge Instructions Interventions: ED Discharge Assessment Last Done: 02/01/25 17:23 Discharge Problem: Metastatic cancer Qualifiers: Area of secondary neoplastic involvement: unspecified site Qualified Code(s): C 79.9 - Secondary malignant neoplasm of unspecified site Respiratory failure Qualifiers: Chronicity: acute Respiratory failure complication: hypoxia Qualified Code(s): J96.01 - Acute respiratory failure with hypoxia Acute renal failure Qualifiers: Acute renal failure type: unspecified Qualified Code(s): N17.9 - Acute kidney failure, unspecified
[2025-02-01] MEDS: SODIUM CHLORIDE 0.9% 1,000 ML IV SCH (10:33)
[2025-02-01 10:54] LABS: Hematocrit (blood only) 27.2 % (37.0-47.0); Hemoglobin 8.5 g/dl (12.0-16.0); Mean Corpuscular Hemoglobin 28.4 pg (25.0-34.0); Mean Corpuscular Volume 91.0 fL (80.0-100.0); Platelet Count 140 K/uL (130-400); RDW Standard Deviation 60.4 fL (36.4-46.3); Red Blood Count 2.99 M/uL (4.20-5.40); White Blood Count 19.01 K/ul (4.8-10.8)
--- NOTE | 2025-02-01 10:58 | XRay Report ---
XR chest 1V portable CLINICAL HISTORY: Sepsis COMPARISON STUDY: 12/22/2024 FINDINGS: Stable chest port. Heart size and pulmonary vasculature are normal. No consolidation or ple ural effusion. No pneumothorax. IMPRESSION: No acute findings. ACT 112: Negative or not required by law. Electronically signed by: Noah Dong M.D. 02/01/2025 10:57 AM
[2025-02-01] MEDS: CEFEPIME 2000MG 2,000 MG/20 ML SYR IV STA (11:04)
[2025-02-01 11:20] LABS: Alanine Aminotransferase 20 U/L (7-52); Alkaline Phosphatase 130 U/L (34-104); Anion Gap 17 (3-11); Bilirubin,Total 0.3 mg/dl (0.2-1.0); Blood Urea Nitrogen 56 mg/dl (6-23); Calcium 9.8 mg/dl (8.6-10.3); Carbon Dioxide 17 mmol/L (21-32); Chloride 103 mmol/L (98-107); Glucose 188 mg/dl (70-99(Fasting)); Magnesium 1.0 mg/dl (1.7-2.4); Potassium 4.6 mmol/L (3.5-5.1); Sodium 137 mmol/L (136-145); Total Protein 6.7 gm/dl (6.0-8.3)
[2025-02-01 11:31] LABS: Dohle Bodies 1+; INR 1.1 (0.9-1.1); Immature Granulocytes # (auto) 0.22 K/uL (0.01-0.20); Immature Granulocytes % (auto) 1.2 %; Polychromasia 1+; Prothrombin Time 11.8 Seconds (9.0-12.0); Toxic Vacuolation 1+
[2025-02-01 11:34] LABS: Thyroid Stimulating Hormone 2.830 uIu/ml (0.300-4.500)
[2025-02-01] MEDS ORDERED: VANCOMYCIN CONSULT ACTIVE PRN (12:09)
--- NOTE | 2025-02-01 12:49 | History & Physical Report ---
Date of Service February 01, 2025 Assessment & Plan (1) Septic shock: (2) Respiratory failure: (3) Endometrial cancer: (4) Ovarian cancer: (5) Metastatic cancer: (6) Colostomy status: (7) Hypomagnesemia: Plan 64 year old female with PMH significant for endometrial and ovarian cancer with peritoneal metastatic disease s/p hysterectomy and colostomy who presents to the ED on 02/01/2025 as a referral from Heme/Onc treatment for fever and concerns for sepsis. Patient rapidly decompensated in the ED and is admitted to the ICU for septic shock and respiratory failure. Septic shock Patient presented with fevers (38.6), leukocytosis 19K, tachycardia 130s, tachypnea Lactic acid 3.7 and procalcitonin >[address] negative for infection CTAP negative for infection Blood cultures pending UA indicative of infection with culture pending s/p 2L fluids in the ED Initially on cefepime and vanco Continue with zosyn and vanco Respiratory failure Likely secondary to septic shock Rapid decompensation with sats to 33% Nonrebreather-> bipap-> intubation ABG: pH 7.39, pCO2 20, pO2 485, HCO3 12, base excess -13 CT PE negative Ventilator management per ICU Endometrial and ovarian cancer with peritoneal metastatic disease Following with Dr Alves of [facility] - consulted Recently decided to pursue further chemo - has not started this treatment yet CTAP and CT chest reveal progression of metastatic disease Blood counts stable with Hgb 8.5, platelets 140 Patient desires full code this hospitalization CARY Likely secondary to sepsis/dehydration Initial Cr 2.43 *Approval for CT PE with eGFR of 21 given respiratory failure and high concern for PE in active cancer patient* Repeat Cr 2.14 Monitor Hypomagnesemia Initial Mag 1.0 Replete and monitor DVT Prophylaxis: Code Status: FULL CODE PCP: Greer Lai Disposition: admit to ICU Patient seen in collaboration with Dr Kang. Please see addendum. I spent a total of 70 minutes coordinating, documenting and providing care for this patient excluding time spent in the performance of separately billed services or time spent by another provider/QHP. Admission and Anticipated Discharge Date Admission Date: 02/01/2025 History of Present Illness Chief Complaint: fever Primary Care Provider: Greer Lai, 64 year old female with PMH significant for endometrial and ovarian cancer with peritoneal metastatic disease s/p hysterectomy and colostomy who presents to the ED on 02/01/2025 as a referral from Heme/Onc treatment for fever and concerns for sepsis. Patient completed 5 days of cisplatin and etoposide and then was admitted to [facility] in December with pancytopenia. Patient was discharged with home health and did establish with hospice services. She then had an appointment with Dr Alves on 01/22/2025 to discuss treatment options where she decided she wanted to continue with another round of chemo. She signed off of hospice services on 01/30. She was due for her first chemo treatment yesterday, 01/31, but treatment was held because patient wasn't feeling well and she received fluids instead. Today, 02/01, she was febrile to 38.6 at the infusion clinic and labs were concerning for sepsis. She was referred to the ED for further evaluation. Patient notes that she felt febrile last night with rigors but did not take her temperature. She reports pain in her tailbone, SOB with exertion, nausea associated with eating but no vomiting, and intermittent dysuria. She denies chest pain, abdominal pain, constipation/diarrhea, hematochezia, hematuria. She states she wants full work up and treatment and stated she wants to be full code status including intubation if needed. During my initial evaluation, she was alert and oriented and hemodynamically stable. She went to get CT scans done and upon return to her ED room, she decompensated rapidly. Her blood pressure dropped to 80s/30s and her sats were 33%. She was lethargic and mottled. She was put on a non-rebreather and then Bipap. She was put on Phenylephrine. Bedside echo completed by Dr. Bearden. Stat CT PE ordered and obtained. Transfer to ICU where she was intubated by Dr. Kang. Allergies Allergy/AdvReac Type Severity Reaction Status Date / Time No Known Allergies Allergy Verified 04/01/24 02:37 Home Medications Medication Instructions Recorded Confirmed Type acetaminophen 500 mg capsule 1,000 mg (2 x 500 mg) PO Q6H PRN 12/26/24 02/01/25 Rx fever or pain #60 caps acetaminophen 650 mg rectal 650 mg DC Q4H PRN fever #12 ea 12/26/24 02/01/25 Rx suppository bisacodyl 10 mg rectal suppository 10 mg DC DAILY PRN constipation 12/26/24 02/01/25 Rx #12 ea lorazepam 0.5 mg tablet (Ativan) 0.5 mg PO Q8H PRN 12/26/24 02/01/25 Rx anxiety/agitation #10 tabs morphine 10 mg/5 mL oral solution 5 mg (2.5 mL) PO .q3 PRN pain #100 12/26/24 02/01/25 Rx mL polyethylene glycol 3350 17 17 g PO DAILY PRN constipation 12/26/24 02/01/25 Rx gram/dose oral powder (Miralax) #119 grams potassium chloride 20 mEq 20 meq PO BID 02/01/25 02/01/25 History tablet,extended release(part/cryst) Past Med/Surg History Problem List (Updated 01/26/25 @ 00:08 by Golden Stock) Septic shock Respiratory failure Sepsis (Acute) Metastatic cancer (Acute) Ovarian cancer Endometrial cancer Hypomagnesemia (Acute) Colostomy status Medical History (Updated 02/01/25 @ 18:15 by Nii Bearden MD) Neutropenia Thrombocytopenia Pancytopenia Epistaxis Neutropenic fever History of endometrial cancer Breast nodule Malnutrition Social History Smoking Status: Never smoker Second Hand Exposure: No; Do You Dip or Chew Tobacco: No; Hx Alcohol Use: No Hx Substance Use: No Preferred Language: Telugu Communication Ability: Effective [employer] Required: Voice Beliefs That Will Affect Care: None Current Living Situation: Alone Feels Safe at Home: Declines to Answer Assistive Devices: Cane and Walker Review of Systems Review of Systems: All systems reviewed & are unremarkable except as noted in HPI & below Physical Exam Physical Exam: *At time of initial assessment* General/Psych: toxic appearing, laying in bed, drowsy but arousable Head: normocephalic, atraumatic Eyes: normal inspection, PERRL, conjunctivae pink ENT: external ear and nose normal, oropharynx normal Neck: normal visual inspection, trachea midline, no thyromegaly Respiratory: normal respiratory effort, lungs clear to auscultation, no wheeze/rales/rhonchi, no accessory muscle use Cardiovascular: regular rate and rhythm, no murmur/rub/gallop, no JVD Extremities: no cyanosis or clubbing, normal peripheral pulses, no BLE edema Abdomen/GI: normal bowel sounds, soft, mildly tender on palpation to all quadrants Neurologic/MSK: A+Ox3, motor strength 5/5, moves all extremities Skin: no rashes, normal color, warm and dry Results & Data Results & Data Vital Signs (Past 12 Hours) Vital Signs Temp Pulse Resp BP Pulse Ox O2 Del Method 02/01/25 12:03 131 H 12 110/66 94 02/01/25 11:45 130 H 14 112/68 95 02/01/25 11:27 130 H 24 109/68 94 02/01/25 11:18 130 H 24 104/66 98 02/01/25 11:06 130 H 29 H 98 02/01/25 10:42 133 H 28 H 96/59 L 02/01/25 10:33 134 H 29 H 80/51 L 02/01/25 10:22 135 H 02/01/25 10:18 82/57 L 02/01/25 10:11 37.2 C 141 H 20 74/52 L 97 Room Air Laboratory Results Short CBC 02/01/25 Range/Units 10:31 WBC 19.01 H (4.8-10.8) K/ul Hgb 8.5 L (12.0-16.0) g/dl Hct 27.2 L (37.0-47.0) % Plt Count 140 (130-400) K/uL BMP 02/01/25 02/01/25 10:31 15:17 Sodium 137 138 Potassium 4.6 5.2 H Chloride 103 110 H Carbon Dioxide 17 L 15 L BUN 56 H 57 H Creatinine 2.43 H 2.14 H Glucose 188 H 153 H Calcium 9.8 8.7 Liver Function 02/01/25 02/01/25 Range/Units 10:31 15:17 Total Bilirubin 0.3 0.3 (0.2-1.0) mg/dl Direct Bilirubin 0.1 (0-0.2) mg/dl AST 43 H 37 (13-39) U/L ALT 20 18 (7-52) U/L Alkaline Phosphatase 130 H 116 H (34-104) U/L Albumin 3.1 L 2.7 L (3.4-5.0) gm/dl Urine 02/01/25 Range/Units 12:49 Urine Color Yellow Urine Appearance Turbid A (Clear) Urine pH 5.0 (4.5-7.5) Ur Specific Show Low 1.019 (1.000-1.030) Urine Protein 2+ H (Negative) Urine Glucose (UA) Negative (Negative) I have independently reviewed and interpreted patient's admitting labs including CBC, CMP, PT, PTT/INR, mag, troponin, procalcitonin, TSH. Diagnostic Findings Chest X-Ray 02/01/25 10:20 XR chest 1V portable CLINICAL HISTORY: Sepsis COMPARISON STUDY: 12/22/2024 FINDINGS: Stable chest port. Heart size and pulmonary vasculature are normal. No consolidation or pleural effusion. No pneumothorax. IMPRESSION: No acute findings. ACT 112: Negative or not required by law. Electronically signed by: Noah Dong M.D. 02/01/2025 10:57 AM Abdomen/Pelvis CT 02/01/25 11:[address] WITHOUT CONTRAST CT DOSE: 1446 HISTORY: sepsis, metastatic ovarian CA TECHNIQUE: Multiaxial CT images of the abdomen and pelvis were performed without contrast. A dose lowering technique was utilized adhering to the principles of ALARA. COMPARISON STUDY: 12/24/2024 FINDINGS: ABDOMEN: There is increased size of a few subserosal masses anteriorly at the liver, largest measuring 6 cm greatest dimension. There are gallstones without evidence of acute cholecystitis. Spleen, pancreas, and adrenal glands are unremarkable. There are numerous progressive masses scattered diffusely throughout the omentum of the abdomen and pelvis measuring up to 6 cm, increased. There is no hydronephrosis on the left. There is interval mild hydronephrosis on the right. No renal or ureteral calculi. Pelvis: Urinary bladder is decompressed. There is stable partial colectomy with Marquez's pouch and left lower quadrant ostomy. Stable small parastomal hernia containing nonobstructed colon. No bowel inflammation or obstruction seen. No free fluid, free air, or abscess. Osseous structures: There is moderate lumbar degenerative disc disease. IMPRESSION: 1. Diffuse progressive omental metastatic disease throughout the abdomen and pelvis. Progressive serosal hepatic metastatic disease. 2. Interval mild hydronephrosis at the right kidney is likely due to a metastatic lesion in the pelvis. 3. No ascites. No bowel obstruction. ACT 112: Negative or not required by law. The above report was generated using voice recognition software. It may contain grammatical, syntax or spelling errors. Electronically signed by: Noah Dong M.D. 02/01/2025 1:[address] 02/01/25 11:53 CT OF THE CHEST WITHOUT IV CONTRAST CLINICAL HISTORY: Sepsis, metastatic ovarian CA. COMPARISON STUDY: Chest CT December 24, 2024. Chest radiograph performed earlier today. CT DOSE: 1445.81 mGy.cm TECHNIQUE: Axial images of the chest were obtained without IV contrast. Images were reviewed in the axial, sagittal, and coronal planes. IV contrast was not administered for this examination. Automated exposure control was utilized for the study. A dose lowering technique was utilized adhering to the principles of ALARA. FINDINGS: A right internal jugular Qjyckt-c-Rlav is in place. Moderate cardiomegaly is again noted. There is a trace pericardial effusion, slightly decreased since prior examination. No enlarged axillary, mediastinal or hilar lymph nodes are present. The central airways are patent. There is no pneumothorax or pleural effusion. There is no consolidation to suggest pneumonia. Lungs are suboptimally assessed due to respiratory motion. A 5 mm right lower lobe nodule along the major fissure on image 100 is unchanged. A 7 mm right apical nodular density on image 48 is new since prior exam. Linear densities and groundglass opacities within the lungs favor atelectasis. Extensive upper abdominal peritoneal/omental disease has significantly progressed since CT of December 24, 2024. A 5.6 cm right hepatic lobe capsular implant has significantly increased in size. Please note that the abdomen and pelvis CT will be reported separately. IMPRESSION: 1. No consolidation to suggest pneumonia. 2. 7 mm right apical nodular density which is new since chest CT of December 24, 2024. This is indeterminate and can be assessed on follow-up exams. 3. Significant progression of upper abdominal peritoneal/omental metastases since CT of December 24, 2024. ACT 112: Negative or not required by law. Electronically signed by: Corky Palacios M.D. 02/01/2025 1:36 PM Chest CTA 02/01/25 15:14 CT angio chest PE protocol CT DOSE: 607.24 mGy.cm HISTORY: PE. TECHNIQUE: Multiple CTA images of the chest were obtained after the intravenous administration of 120 ml Optiray. Coronal and sagittal MIPS were obtained from the axial data set and were submitted for review. All measurements were obtained according to NASCET criteria. A dose lowering technique was utilized adhering to the principles of ALARA. COMPARISON STUDY: 02/01/2025 FINDINGS: There is minimal dependent atelectasis in the lung bases. There is no pulmonary consolidation or pleural effusion. No pneumothorax. No enlarged adenopathy. There is motion artifact. No pulmonary embolism seen. No thoracic aortic dissection or aneurysm. No pericardial effusion. Hepatic and omental metastatic disease at the upper abdomen is described in detail on the CT scan earlier today. IMPRESSION: No pulmonary embolism or pneumonia seen. ACT 112: Negative or not required by law. The above report was generated using voice recognition software. It may contain grammatical, syntax or spelling errors. Electronically signed by: Noah Dong M.D. 02/01/2025 3:45 PM ECG Additional Comments: I have independently reviewed and interpreted patient's admitting EKG which revealed: sinus tachycardia at a rate of 134bpm Code Status & VTE Plan Code Status Full Code Supervising Physician Co-Signing Physician Notes Patient seen and examined at bedside. Patient was fair appearing on initial examination, stating that she felt like she was having fevers and chills. Patient wanted to be intubated if required, and was clear in her intentions. Alert and orriented x3. However, code purple called, patient saturating in 30% range, taken to different ED pod. Placed on bag noninvasive ventilation then Bipap. ED attending helped with bedside echo showing concern for Takatsubo cardiomyopathy and RV dysfunction. Started phenylephrine in ED. Updated family at bedside on several occasions. Admitted to ICU. In ICU, patient having increased work of breathing, this provider called anesthesia to intubate patient due to concern for impending respiratory failure. Ventilation orders and ICU orders placed. [facility] minutes spent discussing goals and values with sisters who are next of kin. Discussed patients critical condition, including multiorgan failure (septic shock, respiratory failure, significant worsening of metastatic ovarian cancer, urethral obstruction 2/2 mass effect from malignancy, renal failure) and the high liklihood of decompensation and in the next few hours to days. Discussed patients expressed wishes of intubation. Family states they would not want her to suffer and do not want her to have chest compressions. They express they do not want escalation of care at this time. Discussed plan of no escalation of care, no chest compressions, and attempt to stabilize patient for family to arrive to further discuss comfort care. They are agreeable to the plan and appreciative of the update. Complex case. Patient with high grade rare serotype ovarian malignancy with s ignificant progression of disease throughout abdomen, pelvis and (likely) lungs presenting with sepsis turning into septic vs. undifferentiated shock and respiratory failure. CT imaging throughout lung and abdomen/pelvis not strongly suggestive of source of infection. No strong evidence of pneumonia. Could be urosepsis given compression of ureter extrinsically. At this time, malignancy itself vs. necrosis of malignancy most likely source of septic vs. undifferentiated shock. Patient on vancomycin, zosyn. Blood cultures pending, biofire ordered. Intubated and sedated at this time. STAT echo ordered. Fluid resuscitation ongoing. Phenylephrine for pressors given concern for Takatsubo on bedside echo. Check AM cortisol. -strong liklihood of transition to comfort focused care per family discussion tonight vs. in the near future, until then continue clinical management of shock and respiratory status I have seen and discussed the case with the collaborating advanced practitioner. I agree with the above H&P. I have reviewed and confirmed the patients medical history, the findings on physical examination, and the patients diagnosis and treatment plan with Krystal AGUILERA and agree with the information documented. I spent a total of 8 minutes coordinating, documenting, and providing care for this patient excluding time spent in the performance of separately billed services. All of the aforementioned completed outside of collaborating with the assigned advanced practitioner for a full treatment plan. I have reviewed the advanced practitioner's documentation, and I agree with, and take responsibility for the plan of care
[2025-02-01] MEDS: VANCOMYCIN HCL 1,750 MG in SODIUM CHLORIDE 0.9% 500 ML IV ONE (13:03)
[2025-02-01 13:11] LABS: Appearance Urine Turbid (Clear); Bacteria Urine Automated 4+ (None Seen); Cast Urine Automated >20 /lpf (0-2); Epithelial Cell Urine Auto 0-2 /hpf (0-2); Glucose Urine UA Negative (Negative); RBC Urine Automated 0-2 /hpf (0-2); WBC Urine Automated >50 /hpf (0-5)
--- NOTE | 2025-02-01 13:15 | CT Scan Report ---
ABDOMEN AND PELVIS CT WITHOUT CONTRAST CT DOSE: 1446 HISTORY: sepsis, metastatic ovarian CA TECHNIQUE: Multiaxial CT images of the abdomen and pelvis were performed without contrast. A dose lo wering technique was utilized adhering to the principles of ALARA. COMPARISON STUDY: 12/24/2024 FINDINGS: ABDOMEN: There is increased size of a few subserosal masses anteriorly at the liver, largest measurin g 6 cm greatest dimension. There are gallstones without evidence of acute cholecystitis. Spleen, panc reas, and adrenal glands are unremarkable. There are numerous progressive masses scattered diffusely throughout the omentum of the abdomen and pelvis measuring up to 6 cm, increased. There is no hydrone phrosis on the left. There is interval mild hydronephrosis on the right. No renal or ureteral calculi . Pelvis: Urinary bladder is decompressed. There is stable partial colectomy with Marquez's pouch and l eft lower quadrant ostomy. Stable small parastomal hernia containing nonobstructed colon. No bowel in flammation or obstruction seen. No free fluid, free air, or abscess. Osseous structures: There is moderate lumbar degenerative disc disease. IMPRESSION: 1. Diffuse progressive omental metastatic disease throughout the abdomen and pelvis. Progressive sero raven hepatic metastatic disease. 2. Interval mild hydronephrosis at the right kidney is likely due to a metastatic lesion in the pelvi s. 3. No ascites. No bowel obstruction. ACT 112: Negative or not required by law. The above report was generated using voice recognition software. It may contain grammatical, syntax o r spelling errors. Electronically signed by: Noah Dong M.D. 02/01/2025 1:14 PM
--- NOTE | 2025-02-01 13:39 | CT Scan Report ---
CT OF THE CHEST WITHOUT IV CONTRAST CLINICAL HISTORY: Sepsis, metastatic ovarian CA. COMPARISON STUDY: Chest CT December 24, 2024. Chest radiograph performed earlier today. CT DOSE: 1445.81 mGy.cm TECHNIQUE: Axial images of the chest were obtained without IV contrast. Images were reviewed in the axial, sagittal, and coronal planes. IV contrast was not administered for this examination. Automat ed exposure control was utilized for the study. A dose lowering technique was utilized adhering to t he principles of ALARA. FINDINGS: A right internal jugular [id number] is in place. Moderate cardiomegaly is again noted. There is a trace pericardial effusion, slightly decreased since prior examination. No enlarged axilla ry, mediastinal or hilar lymph nodes are present. The central airways are patent. There is no pneumot horax or pleural effusion. There is no consolidation to suggest pneumonia. Lungs are suboptimally ass essed due to respiratory motion. A 5 mm right lower lobe nodule along the major fissure on image 100 is unchanged. A 7 mm right apical nodular density on image 48 is new since prior exam. Linear densiti es and groundglass opacities within the lungs favor atelectasis. Extensive upper abdominal peritoneal /omental disease has significantly progressed since CT of December 24, 2024. A 5.6 cm right hepatic lobe capsular implant has significantly increased in size. Please note that the abdomen and pelvis CT will be reported separately. IMPRESSION: 1. No consolidation to suggest pneumonia. 2. 7 mm right apical nodular density which is new since chest CT of December 24, 2024. This is indetermin ate and can be assessed on follow-up exams. 3. Significant progression of upper abdominal peritoneal/omental metastases since CT of December 24, 2024 . ACT 112: Negative or not required by law. Electronically signed by: Corky Palacios M.D. 02/01/2025 1:36 PM
[2025-02-01] MEDS: PHENYLEPHRINE/NSS 25 MG/250 ML BAG IV SCH (15:20)
[2025-02-01] MEDS: OPTIRAY 320 125ml IV ONE (15:31)
[2025-02-01 15:34] LABS: iSTAT Art Bld Gas Base Excess -13.0 meg/L (-9-1.8)
--- NOTE | 2025-02-01 15:46 | CT Scan Report ---
CT angio chest PE protocol CT DOSE: 607.24 mGy.cm HISTORY: PE. TECHNIQUE: Multiple CTA images of the chest were obtained after the intravenous administration of 120 ml Optiray. Coronal and sagittal MIPS were obtained from the axial data set and were submitted for review. All measurements were obtained according to NASCET criteria. A dose lowering technique was u tilized adhering to the principles of ALARA. COMPARISON STUDY: 02/01/2025 FINDINGS: There is minimal dependent atelectasis in the lung bases. There is no pulmonary consolidati on or pleural effusion. No pneumothorax. No enlarged adenopathy. There is motion artifact. No pulmona ry embolism seen. No thoracic aortic dissection or aneurysm. No pericardial effusion. Hepatic and ome ntal metastatic disease at the upper abdomen is described in detail on the CT scan earlier today. IMPRESSION: No pulmonary embolism or pneumonia seen. ACT 112: Negative or not required by law. The above report was generated using voice recognition software. It may contain grammatical, syntax o r spelling errors. Electronically signed by: Noah Dong M.D. 02/01/2025 3:45 PM
[2025-02-01] MEDS ORDERED: ACETAMINOPHEN 500 MG TAB PO PRN (16:02)
[2025-02-01 16:03] LABS: Alanine Aminotransferase 18.0 U/L (7-52); Albumin Globulin Ratio 0.9 (0.9-2); Alkaline Phosphatase 116.0 U/L (34-104); Anion Gap 13.0 (3-11); Bilirubin,Total 0.3 mg/dl (0.2-1.0); Blood Urea Nitrogen 57.0 mg/dl (6-23); Calcium 8.7 mg/dl (8.6-10.3); Carbon Dioxide 15.0 mmol/L (21-32); Chloride 110.0 mmol/L (98-107); Creatinine Clr Calc Pharmacy 24.8 ml/min; Globulin 3.0 gm/dl (2.5-4.0); Glucose 153.0 mg/dl (70-99(Fasting)); Magnesium 1.0 mg/dl (1.7-2.4); Potassium 5.2 mmol/L (3.5-5.1); Sodium 138.0 mmol/L (136-145); Total Protein 5.7 gm/dl (6.0-8.3)
[2025-02-01] MEDS: ACETAMINOPHEN 1,000 MG/100 ML VIAL IV PRN (16:12)
[2025-02-01] MEDS ORDERED: IPRATROPIUM BROMIDE NEB SOLN 0.02% 0.5MG/2.5ML VIAL INH PRN (16:14)
[2025-02-01] MEDS ORDERED: LEVALBUTEROL HCL 0.63 MG/3 ML NEB INH PRN (16:14)
[2025-02-01] MEDS: MIDAZOLAM HCL 1 MG/ML 2ML VIAL IV STA ×2 (16:15→16:19)
[2025-02-01] MEDS: RAPID SEQUENCE INDUCTION BAG ONE ×2 (16:15→16:16)
[2025-02-01] MEDS: PHENYLEPHRINE HCL 25 MG/250 ML NSS IV ONE (16:15)
[2025-02-01] MEDS: ACETAMINOPHEN 1000 MG/100 ML IV IV ONE (16:15)
[2025-02-01] MEDS: MIDAZOLAM HCL 1 MG/ML 2ML VIAL ONE (16:16)
[2025-02-01] MEDS: LACTATED RINGER'S 1,000 ML IV ONE (16:17)
--- NOTE | 2025-02-01 16:17 | Anesthesia Procedure Note ---
Anesthesia Procedure Note Intubation Note Date of procedure: 02/01/25 Indication for intubation: Respiratory distress (on CPAP and tiring) Consent: Risk / Benefits Reviewed With: Accepts Plan Monitors attached: Blood Pressure, EKG and Pulse Oximetry Premedication: Propofol (mg) (80mg) and Etomidate (mg) (18mg) Paralytic medication: Succinylcholine (mg) (80mg) Intubation technique: RSI Equipment: Glidescope (3) View: Grade 1 Endotracheal tube: Oral, 7.5, with Stylet, Tube secured @ cm (22cm at the lip) and Balloon inflated Attempts: 1 and Atraumatic Tube placement confirmation: auscultation and Positive CO2 detection Post-procedure: No complication and Post placement CXR ordered (pending)
[2025-02-01] MEDS: MAGNESIUM SULFATE / D5W 1 GM/100 ML BAG IV SCH (16:20)
[2025-02-01] MEDS: STAT IV Infusion **Titration per Protocol STA ×2 (16:27→17:22)
--- NOTE | 2025-02-01 16:31 | Critical Care Consultation ---
Date of Consultation February 01, 2025 Assessment & Plan (1) Septic shock: (2) Endometrial cancer: (3) Ovarian cancer: (4) Metastatic cancer: Plan Patient is a 64yo F w/ PMH notable for endometrial and ovarian cancer with peritoneal metastatic disease s/p hysterectomy and colostomy, who presented to the ED on 02/01 from Heme/Onc treatment for fever and concerns for sepsis. Patient rapidly decompensated in the ED and is admitted to the ICU for septic shock and respiratory failure. Neuro RASS goal - 0 Propofol for sedation APAP prn Pulm AHRF likely 2/2 septic shock. Initial CXR unremarkable. CT/CTA negative for PE or pna. Patient rapidly decompensated in ED with sats to 33%. Code purple was called. Nonrebreather --> bipap --> finally intubated (16:12), confirmed w/ CXR Vent settings: AC / RR 20 / TV 380 / PEEP 5 / FIO2 100, positioned at 22cm. ABG on these settings: pH 7.39, pCO2 20, pO2 485, HCO3 12, base excess -13 Atrovent and levalbuterol prn CV EKG showing sinus tachycardia. Patient remains tachycardic w/ low BP (low 100s/40s-50s). s/p 25 mg Phenylephrine ED attending and primary hospitalized performed bedside echo, which was concerning for Takatsubo cardiomyopathy and RV dysfunction Initial trop 72.7; has been downtrending, most recent 46.1. Phenylephrine as need to maintain MAP goal > 65 FEN/GI ALP elevated 130 --> 116, otherwise LFTs normal. NPO Renal/lytes CARY with Cr 2.43, BUN 56, GFR 21.81. Baseline wnl. s/p 2L nss in ED, 1L LR in ICU. Potassium mildly elevated at 5.2. Does take KCl 20 mEq BID Mg low at 1.0 - being repleted. Heme/Onc Patient s/p hysterectomy and colostomy, completed 5 days of cisplatin and etoposide. CT A/P showing diffuse progressive omental metastatic disease throughout abdomen and pelvis; progressive serosal hepatic metastatic disease; mild hydronephrosis likely 2/2 a metastatic lesion in the pelvis. No ascites. CT chest also showing significant progression of upper abdominal peritoneal/omental metastases (compared w/ CT 12/24/2024) Heme/onc has been consulted. Endo TSH normal at 2.8. Glucose initially elevated to 188; patient has no home regimen for glycemic control. ICU protocol for hyperglycemia. ID Febrile (Tmax 39.5), leukocytosis (19.01), tachycardia (up to 150s), tachypnea (to 45). Currently afebrile. UA indicative of infection with culture pending. Blood cx collected x2. On 12/22/2024 admission, blood cx showed no growth x2. Lactate 4.5 and procalcitonin >[address]/CTA chest w/o evidence of pneumonia. CT A/P also negative for infection. s/p 2000mg cefepime and 1750mg vanc. Continue w/ zosyn and vanco Lines and tubes: R subclavian. L antecubital VTE prophylaxis: SCDs / lovenox / heparin etc. Primary hospitalist did discuss code status and care goals extensively with patient and family. Supervising Physician Co-Signing Physician Notes Dr. Cardenas was resident physician during care of patient. I separately evaluated patient for parker portions of the history and the exam. I was present during the critical portion of medical decision making, and I discussed the case with the resident. I generally agree with the findings and plan. History is largely obtained from prior records and the hospitalist medicine service. Patient previously engaged with palliative care and has rescinded previous orders expressing desire to undergo aggressive treatments. In the emergency department patient decompensated with the initial working diagnosis of sepsis required vasoactive medication administration and had increased work of breathing. Ultimately the patient required intubation and there appeared to be significant VQ mismatch and prolonged recovery of her hypoxic state. Imaging was reviewed and there is no obvious pulmonary embolism or pneumonia. While rare this could be metastatic based as patient positioning did appear to affect oxygenation, pulmonary tumor thrombotic microangiopathy is still within the differential. There also appears to be elements of sepsis as the patient is febrile. We are starting broad-spectrum antibiotics. Blood cultures have been obtained and a urine culture is pending. Bio fire has been ordered for respiratory pathogens, chest x-ray and CT scan are largely unremarkable. I do not feel that bronchoscopy is warranted given the tenuous nature of her status and the lack of findings on imaging at this time. Will attempt to obtain a echocardiogram. There is a mild troponin leak; however, the patient was hypotensive and tachycardic. Her magnesium is being repleted, there was an uptrending lactate. There is also occur concern for possible developing hydronephrosis given mild interval change. Tumor necrosis syndrome is also in the differential. We will check serial BMPs and hydrate the patient. After intubation patient stabilized and was able to be weaned off vasoactive medications. She is tolerating propofol and fentanyl for sedation. Will continue to wean her supplemental oxygen as tolerated. In discussion with her family members they recognized the patient's desire to undergo aggressive treatment however this is contrary to recent conversations and development and they are adjusting CODE STATUS to no heroics of chest compressions in event of cardiac arrest however they are agreeable with aggressive treatment including invasive lines and medications. I have personally spent 90 minutes of critical care time in the direct management of this patient. This is a life/limb threatening event. This includes time spent evaluating patient, direct bedside care, chart review, placing orders, interpretation of diagnostic studies, discussion with consultants, patient, and/or family members regarding treatment decisions, as well as other required patient management activities. This time is exclusive of all separately billable procedures, and teaching time and separate from and in addition to any other critical care service time. History of Present Illness Attending Physician: Joe Kang MD History of Present Illness Patient was recently admitted (12/22/2024) for pancytopenia after she completed 5 days of cisplatin and etoposide. Discharged 12/26/2024 with home health. Did establish with hospice services, but later decided to try another round of chemo and signed off hospice services on 01/30. She was due for her first chemo treatment yesterday, but felt ill and was given fluids instead. Today, at the infusion clinic, she was febrile to 38.6 and labs were concerning for sepsis, so she was referred to the ED for further evaluation. On arrival, she reported feeling feverish last night with rigors, but did not take her temperature. She endorsed pain in her tailbone, Gtz, nausea w/o vomiting, and intermittent dysuria. No CP, abd pain, constipation/diarrhea, hematochezia, hematuria. Kerwin hickman was called in ED with hypotension and severe hypoxemia (sats down to 33%). She was lethargic and mottled. Non-rebreather initially attempted, and then Bipap. Bedside echo showed concern for Takusubo CM, Stat CT PE was negative, BP improved on phenylephrine. Pt was transferred to ICU, where she was intubated by Dr. Kang. Currently moderately sedated with propofol, but able to follow commands and move extremities. Allergies Allergy/AdvReac Type Severity Reaction Status Date / Time No Known Allergies Allergy Verified 04/01/24 02:37 Home Medications Medication Instructions Recorded Confirmed Type acetaminophen 500 mg capsule 1,000 mg (2 x 500 mg) PO Q6H PRN 12/26/24 02/01/25 Rx fever or pain #60 caps acetaminophen 650 mg rectal 650 mg PA Q4H PRN fever #12 ea 12/26/24 02/01/25 Rx suppository bisacodyl 10 mg rectal suppository 10 mg PA DAILY PRN constipation 12/26/24 Rx #12 ea lorazepam 0.5 mg tablet (Ativan) 0.5 mg PO Q8H PRN 12/26/24 02/01/25 Rx anxiety/agitation #10 tabs morphine 10 mg/5 mL oral solution 5 mg (2.5 mL) PO .q3 PRN pain #100 12/26/24 02/01/25 Rx mL polyethylene glycol 3350 17 17 g PO DAILY PRN constipation 12/26/24 02/01/25 Rx gram/dose oral powder (Miralax) #119 grams potassium chloride 20 mEq 20 meq PO BID 02/01/25 02/01/25 History tablet,extended release(part/cryst) Patient History Medical History (Updated 02/01/25 @ 16:10 by ALE Garvin) Neutropenia Thrombocytopenia Pancytopenia Epistaxis Neutropenic fever History of endometrial cancer Breast nodule Malnutrition Social History Smoking Status: Never smoker Second Hand Exposure: No; Do You Dip or Chew Tobacco: No; Hx Alcohol Use: No Hx Substance Use: No Preferred Language: Cymro Communication Ability: Effective Candle Maker Required: Voice Beliefs That Will Affect Care: None Current Living Situation: Alone Feels Safe at Home: Declines to Answer Assistive Devices: Cane and Walker Review of Systems Review of Systems: Full ROS conducted and negative except as noted in HPI. Physical Exam Physical Exam: Gen: Ill-appearing but NAD, moderately sedated HEENT: NCAT, anicteric sclera, MMM CV: RRR, no m/r/g, S1/S2 normal, no LE edema Resp: Intubated, lungs clear no wheezing/rhonbi/rales, symmetrical chest rise, no accessory muscle use Abd: Soft, NT/ND, +BS MSK: No cyanosis, clubbing, or edema Skin: Warm, dry, well-perfused, no rashes appreciated Neuro: Able to follow commands, moves all extremities spontaneously, no facial droop, reflexes 2+, SILT Results & Data Results & Data Vital Signs (Past 12 Hours) Vital Signs Temp Pulse Resp BP Pulse Ox O2 Del Method FiO2 02/01/25 15:40 156 H 36 H 98 30 02/01/25 15:10 155 H 35 H 674 H 100 02/01/25 15:05 37.0 C 02/01/25 14:46 130 H 02/01/25 14:33 129 H 21 110/66 95 02/01/25 14:00 129 H 45 H 108/67 95 02/01/25 13:48 131 H 21 104/66 97 02/01/25 13:24 129 H 34 H 110/67 94 02/01/25 13:15 114/66 02/01/25 12:30 130 H 22 121/67 95 02/01/25 12:15 132 H 22 111/64 97 02/01/25 12:03 131 H 12 110/66 94 02/01/25 11:45 130 H 14 112/68 95 02/01/25 11:27 130 H 24 109/68 94 02/01/25 11:18 130 H 24 104/66 98 02/01/25 11:06 130 H 29 H 98 02/01/25 10:42 133 H 28 H 96/59 L 02/01/25 10:33 134 H 29 H 80/51 L 02/01/25 10:22 135 H 02/01/25 10:18 82/57 L 02/01/25 10:11 37.2 C 141 H 20 74/52 L 97 Room Air Resident Activity Tracking Resident Involvement: Resident Care Provided Care Provided: Adult Hospital Medicine
[2025-02-01] MEDS: PROPOFOL IV EMULSION 10 MG/ML 100 ML VIAL IV ONE (16:57)
[2025-02-01] MEDS: PROPOFOL BOLUS FROM BAG IV PRN (16:58)
[2025-02-01 16:59] LABS: Hematocrit (blood only) 24.3 % (37.0-47.0); Hemoglobin 7.4 g/dl (12.0-16.0); Mean Corpuscular Hemoglobin 28.8 pg (25.0-34.0); Mean Corpuscular Volume 94.6 fL (80.0-100.0); Platelet Count 82 K/uL (130-400); RDW Standard Deviation 63.0 fL (36.4-46.3); Red Blood Count 2.57 M/uL (4.20-5.40); White Blood Count 3.67 K/ul (4.8-10.8)
[2025-02-01] MEDS: PIPERACILLIN/TAZOBACTAM 4.5 GM/100 ML BAG IV ONE (17:00)
[2025-02-01] MEDS: PLASMA-LYTE A 1,000 ML IV SCH (17:29)
[2025-02-01 17:34] LABS: Dohle Bodies 1+; Immature Granulocytes # (auto) 0.01 K/uL (0.01-0.20); Immature Granulocytes % (auto) 0.3 %; Polychromasia 2+; Toxic Vacuolation 2+
--- NOTE | 2025-02-01 17:41 | XRay Report ---
Clinical History: Post intubation Technique: 2 frontal views of the chest were obtained Findings: There are no confluent pulmonary infiltrates. The heart size is within normal limits. No pleural effusion or pneumothorax is seen. There is left lung base atelectasis. There is an endotracheal tube with its tip approximately 1.9 cm above the bobbi. There is a right chest wall port with its tip in the lower SVC. There is a nasogastric tube with its tip within the stomach Impression: 1. Endotracheal tube in expected position 2. Left lung base atelectasis Electronically signed by Pavel Pemberton 02-01-2025 5:41 PM
--- NOTE | 2025-02-01 17:54 | Billing Data ---
Date of Service February 01, 2025 Coding Level of Care Code 14146 CRITICAL CARE 1ST 30-74M Additional Critical Care Time Additional 30min Critical Care Time: Yes - 18926 Additional Codes Critical Care Time - Additional 30min Critical Care Time: Yes - [id number] ([id number])
[2025-02-01 18:10] LABS: Chlamydia pneumoniae PCR Not Detected (NotDetected); Coronavirus 229E PCR Not Detected (NotDetected); Coronavirus CoV-2 (COVID19)PCR Not Detected (NotDetected); Coronavirus HKU1 PCR Not Detected (NotDetected); Coronavirus NL63 PCR Not Detected (NotDetected); Coronavirus OC43PCR Not Detected (NotDetected); Human Metapneumovirus PCR Not Detected (NotDetected); Parainfluenza Virus 1 PCR Not Detected (NotDetected); Parainfluenza Virus 2 PCR Not Detected (NotDetected); Parainfluenza Virus 3 PCR Not Detected (NotDetected); Parainfluenza Virus 4 PCR Not Detected (NotDetected); Respiratory Syncytial VirusPCR Not Detected (NotDetected); Rhinovirus/Enterovirus PCR Not Detected (NotDetected)
[2025-02-01 18:21] LABS: Anion Gap 15.0 (3-11); Blood Urea Nitrogen 54.0 mg/dl (6-23); Calcium 8.1 mg/dl (8.6-10.3); Carbon Dioxide 15.0 mmol/L (21-32); Chloride 107.0 mmol/L (98-107); Creatinine Clr Calc Pharmacy 23.6 ml/min; Glucose 90.0 mg/dl (70-99(Fasting)); Lipase 7.0 U/L (11-82); Potassium 5.0 mmol/L (3.5-5.1); Sodium 137.0 mmol/L (136-145)
[2025-02-01] MEDS ORDERED: STAT IV Infusion **Titration per Protocol STA (19:44)
[2025-02-01] MEDS ORDERED: HEPARIN 25000 UNIT/500 ML D5W 25,000 UNITS/500 ML BAG IV SCH (19:45)
[2025-02-01] MEDS: fentaNYL citrate 2,500 MCG/250 ML BAG IV SCH (20:00)
[2025-02-01] MEDS ORDERED: Nursing to Pharmacy Communication SCH ×2 (20:00→22:00)
--- NOTE | 2025-02-01 20:03 | Communication Note ---
Date of Service: February 01, 2025 Patient seen on evening rounds. Events of today noted. Patient is critically ill with rapidly increasing vasopressor requirements as well as progressive aci dosis. Underlying condition is non-reversible. Distributive vs mixed shock. Patient intermittently awakens, moves arms and becomes agitated. Does not follow commands. Unable to answer questions or be involved in her care decisions. Sister and nephew at bedside who are closest immediate family (no adult children, no spouse). We discussed clinical course and options moving forward, those options being aggressive goal-directed care vs. transition to comfort based measures. Per sister, Charo, in prior conversations Beatrice had been adamant about putting comfort above all else. Charo feels Beatrice was frightened by the sudden deterioration in her condition and intubation/CPR/aggressive measures are not in her best interest with an already grim prognosis. I explained what ADVANCED MANUFACTURING TECHNICIAN would look like, including ensuring Beatrice is completely comfortable prior to discontinuing all life-sustaining measures (i.e ventilator, vasopressors, etc). We are awaiting one more sister who will arrive in 1 hour. If all are in agreement we will plan to transition to comfort based measures and allow Beatrice to pass peacefully with family at her side. STAT labs were to be collected. Planned for POCUS directed resuscitation, arterial line, ABG, heparin infusion, additional vasopressors, but after conversation with family we will hold off on these interventions. Will discuss with entire family upon sister's arrival with plan to be determined. For now I will start fentanyl infusion in addition to her propofol infusion for analgesia. Addendum 0915: Sister arrived to bedside. She is a respiratory therapist. I was informed that after discussion amongst themselves family has decided to transition to ADVANCED MANUFACTURING TECHNICIAN tonight. Plan for terminal extubation when they are prepared. All questions were answered to apparent satisfaction. Coding Level of Care Code None
[2025-02-01] MEDS: Heparin IV Adult Wt-Based Low-Dose *NO* INITIAL Bolus Protocol IV STA (20:07)
[2025-02-01 20:33] VITALS: BP 77/51
[2025-02-01] MEDS ORDERED: POTASSIUM CHLORIDE CRTAB 20 MEQ TABCR PO SCH (21:00)
[2025-02-01] MEDS ORDERED: ONDANSETRON INJ 2 MG/ML 2 ML VIAL IV PRN (21:06)
[2025-02-01] MEDS ORDERED: PROPOFOL BOLUS FROM BAG IV PRN (21:16)
[2025-02-01] MEDS ORDERED: 4.5GM EXT INFUSION IV SCH (22:00)
[2025-02-02] MEDS ORDERED: Nursing to Pharmacy Communication SCH ×3 (03:31→04:30)
[2025-02-02] MEDS ORDERED: STAT IV Infusion **Titration per Protocol STA (03:35)
[2025-02-02] MEDS ORDERED: MoRPHine SULFATE 2 MG/ML CARP IV PRN (03:42)
[2025-02-02] MEDS: MoRPHine SULF 100 MG/100 ML BAG IV SCH (04:17)
[2025-02-02 05:04] VITALS: PULSE 110; RESP 30; TEMP 99.1; O2SAT 99
--- NOTE | 2025-02-02 05:28 | Electrocardiogram Report ---
Test Reason : Blood Pressure : */* mmHG Vent. Rate : 134 BPM Atrial Rate : 134 BPM P-R Int : 128 ms QRS Dur : 72 ms QT Int : 286 ms P-R-T Axes : 49 30 38 degrees QTcB Int : 427 ms Sinus tachycardia Otherwise normal ECG When compared with ECG of 22-Dec-2024 11:59, No significant change Confirmed by Philip Huerta ([id number]) on 02/02/2025 5:27:43 AM Referred By: REFERRED SELF Confirmed By: Philip Huerta
--- NOTE | 2025-02-02 19:11 | Hospitalist Progress Note ---
Date of Service February 02, 2025 Assessment & Plan (1) Septic shock: (2) Respiratory failure: (3) Endometrial cancer: (4) Ovarian cancer: (5) Metastatic cancer: (6) Colostomy status: (7) Hypomagnesemia: Plan 64 year old female with PMH significant for endometrial and ovarian cancer with peritoneal metastatic disease s/p hysterectomy and colostomy who presents to the ED on 02/01/2025 as a referral from Heme/Onc treatment for fever and concerns for sepsis. Patient rapidly decompensated in the ED and was admitted to the ICU for septic vs. undifferentiated shock and respiratory failure. Pt was later extubated and placed on comfort care, IV morphine. Currently pt in room 380, comfortable, breathing on RA, unresponsive to voice or touch. Pt's sister present at the bedside. Per admitting provider - Patient with high grade rare serotype ovarian malignancy with significant progression of disease throughout abdomen, pelvis and (likely) lungs presenting with sepsis turning into septic vs. undifferentiated shock and respiratory failure. CT imaging throughout lung and abdomen/pelvis not strongly suggestive of source of infection. No strong evidence of pneumonia. Could be urosepsis given compression of ureter extrinsically. At this time, malignancy itself vs. necrosis of malignancy most likely source of septic vs. undifferentiated shock. Patient on vancomycin, zosyn. Blood cultures pending, biofire ordered. Intubated and sedated. STAT echo obtained. Fluid resuscitation. Phenylephrine for pressors given concern for Takatsubo on bedside echo. -strong likelihood of transition to comfort focused care per family discussion tonight vs. in the near future, until then continue clinical management of shock and respiratory status Septic shock Patient presented with fevers (38.6), leukocytosis 19K, tachycardia 130s, tachypnea Lactic acid 3.7 and procalcitonin >[address] negative for infection CTAP negative for infection Blood cultures pending UA indicative of infection with culture pending s/p 2L fluids in the ED Initially on cefepime and vanco Pt now on comfort care, abx stopped Respiratory failure Likely secondary to septic shock Rapid decompensation with sats to 33% Nonrebreather-> bipap-> intubation ABG: pH 7.39, pCO2 20, pO2 485, HCO3 12, base excess -13 CT PE negative Ventilator management per ICU. Pt extubated and on comfort care, breathing comfortably on RA, but unresponsive Endometrial and ovarian cancer with peritoneal metastatic disease Following with Dr Alves of [facility] Recently decided to pursue further chemo - has not started this treatment yet CTAP and CT chest reveal progression of metastatic disease CARY Likely secondary to sepsis/dehydration Initial Cr 2.43 Hypomagnesemia Initial Mag 1.0 Repleted Code Status: Comfort care PCP: Dr. Greer Lai Admission and Anticipated Discharge Date Admission Date: February 01, 2025 Subjective Pt seen in follow up Pt with hx of metastatic endometrial/ ovarian cancer (follows w/ Dr. Alves) Currently on comfort care , on IV morphine Presented yesterday in ED feeling unwell, w/ fever, then became hypotensive, hypoxic required intubation and ICU admission. After further discussion w/ family pt was extubated and placed on comfort measures. Review of Systems Review of Systems: Unobtainable due to cognitive status Physical Exam Physical Exam: General: WD/WN F, laying in bed in NAD, appears comfortable, not responsive to voice or touch Head: normocephalic, atraumatic ENT: external ear and nose normal Neck: normal visual inspection Respiratory: normal respiratory effort Cardiovascular: regular rate and rhythm Extremities: no BLE edema Abdomen/GI: soft Neurologic: not responsive to voice or touch Skin: no rashes, normal color, warm and dry Results & Data Results & Data Vital Signs (Past 12 Hours) Vital Signs O2 Del Method 02/02/25 07:41 Room Air Laboratory Results 02/01/25 Range/Units 18:27 Ionized Calcium 1.13 (1.12-1.32) mmol/L Medications Administered Current Inpatient Medications Glycopyrrolate (Glycopyrrolate 0.2 Mg/Ml Vial) 0.4 mg IV Q4H PRN PRN Reason: Rattling Secretions or Pulm Congestion Stop: 03/03/25 21:05 Morphine Sulfate (Morphine Sulf) 100 mg in 100 mls @ 2.5 mls/hr IV .Q40H JEFFERSON; Protocol Stop: 02/16/25 03:44 Last Titration: 02/02/25 06:52 Dose: 2.5 mg/hr, 2.5 mls/hr Lorazepam (Lorazepam 2 Mg/1 Ml Vial) 0.5 mg IV Q4H PRN PRN Reason: Anxiety/Agitation Stop: 03/04/25 03:41 Morphine Sulfate (Morphine Bolus From Bag) 1 mg IV Q15M PRN PRN Reason: Comfort Care Parameters Stop: 02/16/25 03:34 Last Admin: 02/02/25 05:06 Dose: 1 mg Morphine Sulfate (Morphine Sulfate 2 Mg/Ml Carp) 2 mg IV Q4H PRN PRN Reason: Pain or Respiratory Distress Stop: 02/16/25 03:41 Ondansetron HCl (Ondansetron Inj 2 Mg/Ml 2 Ml Vial) 4 mg IV Q4H PRN PRN Reason: Nausea &/or Vomiting Stop: 03/03/25 21:05 (2) Respiratory failure Chronicity: acute Respiratory failure complication: hypoxia Qualified Code(s): J96.01 - Acute respiratory failure with hypoxia (5) Metastatic cancer Area of secondary neoplastic involvement: unspecified site Qualified Code(s): C79.9 - Secondary malignant neoplasm of unspecified site
--- NOTE | 2025-02-03 14:35 | Communication Note ---
Palliative Care Note Patient seen and examined at bedside. Patient unresponsive. Discussed case with 2 sisters at the bedside, discussed potential GIP, prognosis, and other q uestions. Family does not want GIP services at this time but were very appreciative of the offer of services. Gen: A&O 0 NAD HEENT: NCAT, EOMI, not icteric. External ears normal. No rhinorrhea. Dry mucous membranes. Nasolabial fold flattening, rattle noted, no significant secretions Lungs: No Respiratory distress. Abdomen: Soft, nondistended MSK: bilateral LE mottling present, bilateral radial pulses dinimished Skin: No rashes, petechiae, lesions. Normal color per patient. Assessment and Plan: #Comfort Care #End Stage High Grade Ovarian Cancer #Septic Shock -patient appears comfortable at this time -no evidence of opioid toxicity, no myoclonus -discussed dying process with family at bedside, patient showing several exam findings consistent with terminal decline -prognosis on scale of hours, likely 48 hours or less Plan: -would not transfer patient as not stable for transport, family respectfully declined GIP services -continue morphine drip at 2.5 per hour for duration given patient comfortable, no evidence of toxicity I will continue to follow. Date of Service: February 03, 2025
--- NOTE | 2025-02-03 15:37 | Hospitalist Progress Note ---
Date of Service February 03, 2025 Assessment & Plan (1) Septic shock: (2) Respiratory failure: (3) Endometrial cancer: (4) Ovarian cancer: (5) Metastatic cancer: (6) Colostomy status: (7) Hypomagnesemia: (8) Palliative care by specialist: Plan: Pt currently on comfort care. Pt seen by palliative care physician, Dr. Kang (pls see their note for further detail). Appreciate their input. Continue current IV morphine gtt. Plan 64 year old female with PMH significant for endometrial and ovarian cancer with peritoneal metastatic disease s/p hysterectomy and colostomy who presents to the ED on 02/01/2025 as a referral from Heme/Onc treatment for fever and concerns for sepsis. Patient rapidly decompensated in the ED and was admitted to the ICU for septic vs. undifferentiated shock and respiratory failure. Pt was later extubated and placed on comfort care, IV morphine. Currently (02/02/2025) pt in room 380, comfortable, breathing on RA, unresponsive to voice or touch. Pt's sister present at the bedside. Per admitting provider - Patient with high grade rare serotype ovarian malignancy with significant progression of disease throughout abdomen, pelvis and (likely) lungs presenting with sepsis turning into septic vs. undifferentiated shock and respiratory failure. CT imaging throughout lung and abdomen/pelvis not strongly suggestive of source of infection. No strong evidence of pneumonia. Could be urosepsis given compression of ureter extrinsically. At this time, malignancy itself vs. necrosis of malignancy most likely source of septic vs. undifferentiated shock. Patient on vancomycin, zosyn. Blood cultures pending, biofire ordered. Intubated and sedated. STAT echo obtained. Fluid resuscitation. Phenylephrine for pressors given concern for Takatsubo on bedside echo. -strong likelihood of transition to comfort focused care per family discussion tonight vs. in the near future, until then continue clinical management of shock and respiratory status 02/03/2025 Pt continues to be on iv morphine, unresponsive, but overall comfortable. Sisters present at the bedside. Palliative med. physician discussed w/ sisters poss. GIP and this was declined. Will cont. current management. Septic shock Patient presented with fevers (38.6), leukocytosis 19K, tachycardia 130s, tachypnea Lactic acid 3.7 and procalcitonin >[address] negative for infection CTAP negative for infection Blood cultures pending UA indicative of infection. urine cultx posit. for Citrobacter 40,000 CFU/mL s/p 2L fluids in the ED Initially on cefepime and vanco Pt now on comfort care, abx stopped Respiratory failure Likely secondary to septic shock Rapid decompensation with sats to 33% Nonrebreather-> bipap-> intubation ABG: pH 7.39, pCO2 20, pO2 485, HCO3 12, base excess -13 CT PE negative Ventilator management per ICU. Pt extubated and on comfort care, breathing comfortably on RA, but unresponsive Endometrial and ovarian cancer with peritoneal metastatic disease Following with Dr Alves of [facility] Recently decided to pursue further chemo - has not started this treatment yet CTAP and CT chest reveal progression of metastatic disease CARY Likely secondary to sepsis/dehydration Initial Cr 2.43 Hypomagnesemia Initial Mag 1.0 Repleted Code Status: Comfort care PCP: Dr. Greer Lai Admission and Anticipated Discharge Date Admission Date: February 01, 2025 Subjective Pt seen in follow up Pt with hx of metastatic endometrial/ ovarian cancer (follows w/ Dr. Alves) Currently on comfort care , on IV morphine Presented in ED feeling unwell, w/ fever, then became hypotensive, hypoxic required intubation and ICU admission. After further discussion w/ family pt was extubated and placed on comfort measures. Currently lying in bed in NAD, on morphine drip, 2 sisters present at the bedside and discussed with. Pt also seen by palliative care physician, Dr. Kang. Review of Systems Review of Systems: Unobtainable due to cognitive status Physical Exam Physical Exam: General: WD/WN F, laying in bed in NAD, appears comfortable, not responsive to voice or touch Head: normocephalic, atraumatic ENT: external ear and nose normal Neck: normal visual inspection Respiratory: normal respiratory effort Cardiovascular: regular rate and rhythm Extremities: no BLE edema Abdomen/GI: soft Neurologic: not responsive to voice or touch Skin: no rashes, pale Results & Data Results & Data Vital Signs (Past 12 Hours) Vital Signs O2 Del Method 02/03/25 09:59 Room Air Medications Administered Current Inpatient Medications Glycopyrrolate (Glycopyrrolate 0.2 Mg/Ml Vial) 0.4 mg IV Q4H PRN PRN Reason: Rattling Secretions or Pulm Congestion Stop: 03/03/25 21:05 Morphine Sulfate (Morphine Sulf) 100 mg in 100 mls @ 2.5 mls/hr IV .Q40H JEFFERSON; Protocol Stop: 02/16/25 03:44 Last Admin: 02/03/25 15:12 Dose: 2.5 mg/hr, 2.5 mls/hr Lorazepam (Lorazepam 2 Mg/1 Ml Vial) 0.5 mg IV Q4H PRN PRN Reason: Anxiety/Agitation Stop: 03/04/25 03:41 Morphine Sulfate (Morphine Bolus From Bag) 1 mg IV Q15M PRN PRN Reason: Comfort Care Parameters Stop: 02/16/25 03:34 Last Admin: 02/02/25 05:06 Dose: 1 mg Morphine Sulfate (Morphine Sulfate 2 Mg/Ml Carp) 2 mg IV Q4H PRN PRN Reason: Pain or Respiratory Distress Stop: 02/16/25 03:41 Ondansetron HCl (Ondansetron Inj 2 Mg/Ml 2 Ml Vial) 4 mg IV Q4H PRN PRN Reason: Nausea &/or Vomiting Stop: 03/03/25 21:05 (2) Respiratory failure Chronicity: acute Respiratory failure complication: hypoxia Qualified Code(s): J96.01 - Acute respiratory failure with hypoxia (5) Metastatic cancer Area of secondary neoplastic involvement: unspecified site Qualified Code(s): C79.9 - Secondary malignant neoplasm of unspecified site
[2025-02-04] MEDS: GLYCOPYRROLATE 0.2 MG/ML VIAL IV PRN (09:40)
--- NOTE | 2025-02-04 10:11 | Communication Note ---
Palliative Care F/u Note Patient seen and examined at bedside. Patient unresponsive at this time. Gen: A&O 0 NAD HEENT: NCAT, EOMI, not icteric. External ears normal. No rhinorrhea. Dry mucous membranes. Nasolabial fold flattening, rattle noted worse today, increased secretions Lungs: No Respiratory distress. Abdomen: Soft, nondistended MSK: bilateral LE mottling present, facial mottling present, bilateral radial pulses diminished Skin: No rashes, petechiae, lesions. Normal color per patient. Assessment and Plan: #Comfort Care #End Stage High Grade Ovarian Cancer #Septic Shock -patient appears comfortable at this time -no evidence of opioid toxicity, no myoclonus -discussed dying process with family at bedside, patient showing several exam findings consistent with terminal decline -prognosis on scale of hours, likely 48 hours or less Plan: -would not transfer patient as not stable for transport, family respectfully declined GIP services -continue morphine drip at 2.5 per hour for duration given patient comfortable, no evidence of toxicity Date of Service: February 04, 2025
--- NOTE | 2025-02-04 17:35 | Hospitalist Progress Note ---
Date of Service February 04, 2025 Assessment & Plan (1) Septic shock: (2) Respiratory failure: (3) Endometrial cancer: (4) Ovarian cancer: (5) Metastatic cancer: (6) Colostomy status: (7) Hypomagnesemia: (8) Palliative care by specialist: Plan: Pt currently on comfort care. Pt seen by palliative care physician, Dr. Kang (pls see their note for further detail). Appreciate their input. Continue current IV morphine gtt. Asked RN for glycopyrrolate as increased gurgling/ secretions noted today Plan 64 year old female with PMH significant for endometrial and ovarian cancer with peritoneal metastatic disease s/p hysterectomy and colostomy who presents to the ED on 02/01/2025 as a referral from Heme/Onc treatment for fever and concerns for sepsis. Patient rapidly decompensated in the ED and was admitted to the ICU for septic vs. undifferentiated shock and respiratory failure. Pt was later extubated and placed on comfort care, IV morphine. Currently (02/02/2025) pt in room 380, comfortable, breathing on RA, unresponsive to voice or touch. Pt's sister present at the bedside. Per admitting provider - Patient with high grade rare serotype ovarian malignancy with significant progression of disease throughout abdomen, pelvis and (likely) lungs presenting with sepsis turning into septic vs. undifferentiated shock and respiratory failure. CT imaging throughout lung and abdomen/pelvis not strongly suggestive of source of infection. No strong evidence of pneumonia. Could be urosepsis given compression of ureter extrinsically. At this time, malignancy itself vs. necrosis of malignancy most likely source of septic vs. undifferentiated shock. Patient on vancomycin, zosyn. Blood cultures pending, biofire ordered. Intubated and sedated. STAT echo obtained. Fluid resuscitation. Phenylephrine for pressors given concern for Takatsubo on bedside echo. -strong likelihood of transition to comfort focused care per family discussion tonight vs. in the near future, until then continue clinical management of shock and respiratory status 02/03/2025 Pt continues to be on iv morphine, unresponsive, but overall comfortable. Sisters present at the bedside. Palliative med. physician discussed w/ sisters poss. GIP and this was declined. Will cont. current management. Septic shock Patient presented with fevers (38.6), leukocytosis 19K, tachycardia 130s, tachypnea Lactic acid 3.7 and procalcitonin >[address] negative for infection CTAP negative for infection Blood cultures pending UA indicative of infection. urine cultx posit. for Citrobacter 40,000 CFU/mL s/p 2L fluids in the ED Initially on cefepime and vanco Pt now on comfort care, abx stopped Respiratory failure Likely secondary to septic shock Rapid decompensation with sats to 33% Nonrebreather-> bipap-> intubation ABG: pH 7.39, pCO2 20, pO2 485, HCO3 12, base excess -13 CT PE negative Ventilator management per ICU. Pt extubated and on comfort care, breathing comfortably on RA, but unresponsive Endometrial and ovarian cancer with peritoneal metastatic disease Following with Dr Alves of [facility] Recently decided to pursue further chemo - has not started this treatment yet CTAP and CT chest reveal progression of metastatic disease CARY Likely secondary to sepsis/dehydration Initial Cr 2.43 Hypomagnesemia Initial Mag 1.0 Repleted Code Status: Comfort care PCP: Dr. Greer Lai Admission and Anticipated Discharge Date Admission Date: February 01, 2025 Subjective Pt seen in follow up Pt with hx of metastatic endometrial/ ovarian cancer (follows w/ Dr. Alves) Currently on comfort care , on IV morphine Presented in ED feeling unwell, w/ fever, then became hypotensive, hypoxic required intubation and ICU admission. After further discussion w/ family pt was extubated and placed on comfort measures. Currently lying in bed in NAD, on morphine drip, 2 sisters present at the bedside and discussed with. Increased gurgling noted today, asked RN for glycopyrolate Pt also seen by palliative care physician, Dr. Kang. Review of Systems Review of Systems: Unobtainable due to cognitive status Physical Exam Physical Exam: General: WD/WN F, laying in bed in NAD, not responsive to voice or touch, + gurgle Head: normocephalic, atraumatic ENT: external ear and nose normal Neck: normal visual inspection Respiratory: normal respiratory effort Cardiovascular: regular rate and rhythm Extremities: no BLE edema Abdomen/GI: soft Neurologic: not responsive to voice or touch Skin: no rashes, pale, warm Results & Data Results & Data Vital Signs (Past 12 Hours) Vital Signs O2 Del Method 02/04/25 09:15 Room Air (2) Respiratory failure Chronicity: acute Respiratory failure complication: hypoxia Qualified Code(s): J96.01 - Acute respiratory failure with hypoxia (5) Metastatic cancer Area of secondary neoplastic involvement: unspecified site Qualified Code(s): C79.9 - Secondary malignant neoplasm of unspecified site
[2025-02-04] MEDS ORDERED: ATROPINE SULFATE 1% OP SOLN 5 ML BTL SL PRN (23:28)
[2025-02-05] MEDS: HYOSCYAMINE SULFATE 0.125 MG TAB SL PRN (00:10)
--- NOTE | 2025-02-05 02:01 | Death Pronouncement Note ---
Date of Service February 05, 2025 Pronouncement Note Admission Date February 01, 2025 Date and Time of Date of : 02/05/25 Time of : 02:06 Summary Discharge summary and certificate to be completed by Dr. Delgado. Additional Data Confirmation of : no pulse, no respirations, no heart sounds and pupils fixed and dilated Attending physician: Alessandro Delgado MD
--- NOTE | 2025-02-05 07:37 | Discharge Summary ---
Date of Service February 05, 2025 Admission HPI Per Admitting Provider 64 year old female with PMH significant for endometrial and ovarian cancer with peritoneal metastatic disease s/p hysterectomy and colostomy who presents to the ED on 02/01/2025 as a referral from Heme/Onc treatment for fever and concerns for sepsis. Patient completed 5 days of cisplatin and etoposide and then was admitted to [facility] in December with pancytopenia. Patient was discharged with home health and did establish with hospice services. She then had an appointment with Dr Alves on 01/22/2025 to discuss treatment options where she decided she wanted to continue with another round of chemo. She signed off of hospice services on 01/30. She was due for her first chemo treatment yesterday, 01/31, but treatment was held because patient wasn't feeling well and she received fluids instead. Today, 02/01, she was febrile to 38.6 at the infusion clinic and labs were concerning for sepsis. She was referred to the ED for further evaluation. Patient notes that she felt febrile last night with rigors but did not take her temperature. She reports pain in her tailbone, SOB with exertion, nausea associated with eating but no vomiting, and intermittent dysuria. She denies chest pain, abdominal pain, constipation/diarrhea, hematochezia, hematuria. She states she wants full work up and treatment and stated she wants to be full code status including intubation if needed. During my initial evaluation, she was alert and oriented and hemodynamically stable. She went to get CT scans done and upon return to her ED room, she decompensated rapidly. Her blood pressure dropped to 80s/30s and her sats were 33%. She was lethargic and mottled. She was put on a non-rebreather and then Bipap. She was put on Phenylephrine. Bedside echo completed by Dr. Bearden. Stat CT PE ordered and obtained. Transfer to ICU where she was intubated by Dr. Kang. Admission Exam Per Admitting Provider General/Psych: toxic appearing, laying in bed, drowsy but arousable Head: normocephalic, atraumatic Eyes: normal inspection, PERRL, conjunctivae pink ENT: external ear and nose normal, oropharynx normal Neck: normal visual inspection, trachea midline, no thyromegaly Respiratory: normal respiratory effort, lungs clear to auscultation, no wheeze/rales/rhonchi, no accessory muscle use Cardiovascular: regular rate and rhythm, no murmur/rub/gallop, no JVD Extremities: no cyanosis or clubbing, normal peripheral pulses, no BLE edema Abdomen/GI: normal bowel sounds, soft, mildly tender on palpation to all quadrants Neurologic/MSK: A+Ox3, motor strength 5/5, moves all extremities Skin: no rashes, normal color, warm and dry Principal Diagnosis Metastatic ovarian and endometrial cancer Shock (septic vs. undifferentiated) Discharge Exam Date and Time of Date of : 02/05/25 Time of : 02:06 Additional Data Confirmation of : no pulse, no respirations, no heart sounds and pupils fixed and dilated Discharge Data Allergies Allergy/AdvReac Type Severity Reaction Status Date / Time No Known Allergies Allergy Verified 04/01/24 02:37 Consultations 02/01/25 12:15 ED Decision to Admit Stat 02/01/25 16:00 Consult Aircraft Systems Technician Routine Ordered Studies 02/01/25 11:53 CT abd pelvis wo con Stat FINDINGS: ABDOMEN: There is increased size of a few subserosal masses anteriorly at the liver, largest measuring 6 cm greatest dimension. There are gallstones without evidence of acute cholecystitis. Spleen, pancreas, and adrenal glands are unremarkable. There are numerous progressive masses scattered diffusely throughout the omentum of the abdomen and pelvis measuring up to 6 cm, increased. There is no hydronephrosis on the left. There is interval mild hydronephrosis on the right. No renal or ureteral calculi. Pelvis: Urinary bladder is decompressed. There is stable partial colectomy with Marquez's pouch and left lower quadrant ostomy. Stable small parastomal hernia containing nonobstructed colon. No bowel inflammation or obstruction seen. No free fluid, free air, or abscess. Osseous structures: There is moderate lumbar degenerative disc disease. IMPRESSION: 1. Diffuse progressive omental metastatic disease throughout the abdomen and pelvis. Progressive serosal hepatic metastatic disease. 2. Interval mild hydronephrosis at the right kidney is likely due to a metastatic lesion in the pelvis. 3. No ascites. No bowel obstruction. CT chest diagnostic wo con Stat FINDINGS: A right internal jugular [id number] is in place. Moderate cardiomegaly is again noted. There is a trace pericardial effusion, slightly decreased since prior examination. No enlarged axillary, mediastinal or hilar lymph nodes are present. The central airways are patent. There is no pneumothorax or pleural effusion. There is no consolidation to suggest pneumonia. Lungs are suboptimally assessed due to respiratory motion. A 5 mm right lower lobe nodule along the major fissure on image 100 is unchanged. A 7 mm right apical nodular density on image 48 is new since prior exam. Linear densities and groundglass opacities within the lungs favor atelectasis. Extensive upper abdominal peritoneal/omental disease has significantly progressed since CT of December 24, 2024. A 5.6 cm right hepatic lobe capsular implant has significantly increased in size. Please note that the abdomen and pelvis CT will be reported separately. IMPRESSION: 1. No consolidation to suggest pneumonia. 2. 7 mm right apical nodular density which is new since chest CT of December 24, 2024. This is indeterminate and can be assessed on follow-up exams. 3. Significant progression of upper abdominal peritoneal/omental metastases since CT of December 24, 2024. 02/01/25 15:14 CT angio chest PE protocol Stat FINDINGS: There is minimal dependent atelectasis in the lung bases. There is no pulmonary consolidation or pleural effusion. No pneumothorax. No enlarged adenopathy. There is motion artifact. No pulmonary embolism seen. No thoracic aortic dissection or aneurysm. No pericardial effusion. Hepatic and omental metastatic disease at the upper abdomen is described in detail on the CT scan earlier today. IMPRESSION: No pulmonary embolism or pneumonia seen. Hospital Course (1) Septic shock: (2) Respiratory failure: (3) Endometrial cancer: (4) Ovarian cancer: (5) Metastatic cancer: (6) Colostomy status: (7) Hypomagnesemia: (8) Palliative care by specialist: Pt on comfort care. Pt seen by palliative care physician, Dr. Kang (pls see their note for further detail). Appreciate their input. Continued on IV morphine gtt. Pt 02/06/2025 at 2:06 am Plan 64 year old female with PMH significant for endometrial and ovarian cancer with peritoneal metastatic disease s/p hysterectomy and colostomy who presents to the ED on 02/01/2025 as a referral from Heme/Onc treatment for fever and concerns for sepsis. Patient rapidly decompensated in the ED and was admitted to the ICU for septic vs. undifferentiated shock and respiratory failure. Pt was later extubated and placed on comfort care, IV morphine. On (02/02/2025) pt in room 380, comfortable, breathing on RA, unresponsive to voice or touch. Pt's sister present at the bedside. Per admitting provider - Patient with high grade rare serotype ovarian malignancy with significant progression of disease throughout abdomen, pelvis and (likely) lungs presenting with sepsis turning into septic vs. undifferentiated shock and respiratory failure. CT imaging throughout lung and abdomen/pelvis not strongly suggestive of source of infection. No strong evidence of pneumonia. Could be urosepsis given compression of ureter extrinsically. At this time, malignancy itself vs. necrosis of malignancy most likely source of septic vs. undifferentiated shock. Patient on vancomycin, zosyn. Blood cultures pending, biofire ordered. Intubated and sedated. STAT echo obtained. Fluid resuscitation. Phenylephrine for pressors given concern for Takatsubo on bedside echo. -strong likelihood of transition to comfort focused care per family discussion tonight vs. in the near future, until then continue clinical management of shock and respiratory status 02/03/2025 Pt continues to be on iv morphine, unresponsive, but overall comfortable. Sisters present at the bedside. Palliative med. physician discussed w/ sisters poss. GIP and this was declined. Will cont. current management. Pt 02/06/2025 at 2:06 am Shock (septic vs. undifferentiated) Patient presented with fevers (38.6), leukocytosis 19K, tachycardia 130s, tachypnea Lactic acid 3.7 and procalcitonin >[address] negative for infection CTAP negative for infection Blood cultures negative UA indicative of infection. urine cultx posit. for Citrobacter 40,000 CFU/mL s/p 2L fluids in the ED Initially on cefepime and vanco Pt on comfort care, abx stopped Respiratory failure Likely secondary to above Rapid decompensation with sats to 33% Nonrebreather-> bipap-> intubation ABG: pH 7.39, pCO2 20, pO2 485, HCO3 12, base excess -13 CT PE negative Ventilator management per ICU. Pt extubated and on comfort care Metastatic ovarian and endometrial cancer [facility] Recently decided to pursue further chemo - has not started this treatment yet CTAP and CT chest reveal progression of metastatic disease CARY Likely secondary to sepsis/dehydration Initial Cr 2.43 Hypomagnesemia Initial Mag 1.0 Repleted PCP: Dr. Greer Lai Total Time Total Time Spent Total Time Spent (In Minutes): 0 Discharge Plan Discharge Items Patient Disposition: Other Date/Time: 02/05/25 02:06
== END 2025-02-05 02:51 | disposition expired | DRG 871 ==
LOC: ED 09:49 → SUATTDRO 12:53 → 1E 12:53 → 3N 02-02 06:06